=== PATIENT | male | born 1960 | race Caucasian/White ===

== ENCOUNTER 2017-06-30 19:31 | Emergency (ER) | payer MEDICARE, MEDICAID ==
[2017-06-30 20:18] VITALS: BP 133/88
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
== END 2017-06-30 20:30 | disposition home or self-care (01) ==
LOC: UCCORT 19:31
DX: S40.012A Contusion of left shoulder, initial encounter (principal); Y08.89XA Assault by other specified means, initial encounter; Y93.9 Activity, unspecified; Y92.9 Unspecified place or not applicable; F79 Unspecified intellectual disabilities; Z88.8 Allergy status to other drugs, medicaments and biological substances
CPT/HCPCS: 99211; G0463

== ENCOUNTER 2018-02-20 09:09 | Emergency (ER) | payer MEDICARE, MEDICAID ==
--- NOTE | 2018-02-20 10:35 | UC ---
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 no LOC or head injury. - History of Current Complaint Chief Complaint: UCLowerExtremity Stated Complaint: L HIP CONCERN - FALL Time Seen by Provider: 02/20/18 10:27 Hx Obtained From: Family/Freezer Operator Onset/Duration: Sudden Onset Pain Intensity: 0 - Allergy/Home Medications Allergies/Adverse Reactions: Allergies Allergy/AdvReac Type Severity Reaction Status Date / Time Rentin A Allergy Unknown Uncoded 06/30/17 20:18 Reaction Details PMH/Surg Hx/FS Hx/Imm Hx - Additional Past Medical History Additional PMH: MR, SZ, autism, Hep B carrier, PICA, hypoglycemia - Surgical History Surgical History: Yes Surgery Procedure, Year, and Place: LAPAROTOMY FOR FOREIGN BODY REMOVAL. SURGICAL TOOTH REMOVAL - Family History Known Family History: Positive: Unknown - not verbal with me - Social History Occupation: Disabled Lives: [employer] Alcohol Use: None Substance Use Type: None Smoking Status (MU): Never Smoked Tobacco - Immunization History Vaccination Up to Date: Yes Review of Systems All Other Systems Reviewed And Are Negative: No Skin: Negative: Bruising Musculoskeletal: Negative: Decreased ROM Is Patient Immunocompromised?: No - Comments Additional Review of Systems Comments: pt has MR and is non verbal Physical Exam Triage Information Reviewed: Yes Appearance: Well-Appearing Vital Signs: Initial Vital Signs Temp 97.9 F 02/20/18 09:56 Pulse 78 02/20/18 09:56 Resp 18 02/20/18 09:56 Pulse Ox 99 02/20/18 09:56 Vital Signs Reviewed: Yes Eyes: Positive: Conjunctiva Clear ENT: Positive: Normal ENT inspection Neck: Positive: Supple, Nontender, No Lymphadenopathy, Other: - c-spine non tender Respiratory: Positive: Chest non-tender, Lungs clear, Normal breath sounds Cardiovascular: Positive: RRR, No Murmur Abdomen Description: Positive: Nontender, No Organomegaly, Soft Bowel Sounds: Positive: Present Musculoskeletal: Positive: Other: - Head, back, pelvis and extremities has no brusing, swelling abrasions or tenderness. Gross v/m intact x4. Steadty gait. Neurological: Positive: Alert Psychological: Positive: Age Appropriate Behavior - baseline per wound care specialist. Skin Exam: Normal Course/Dx - Course Course Of Treatment: nothing on exam to suggest fx/injury - Diagnoses Provider Diagnosis: Normal exam Discharge - Sign-Out/Discharge Documenting (check all that apply): Patient Departure All imaging exams completed and their final reports reviewed: No Studies - Discharge Plan Condition: Stable Disposition: HOME Patient Education Materials: Normal Exam (ED) Referrals: Tamera Escoto MD [Primary Care Provider] - If Needed - Billing Disposition and Condition Condition: STABLE Disposition: Home - Attestation Statements Provider Attestation: I was available for consult. This patient was seen by the JAIME. The patient was not presented to, seen by, or examined by me. EK
== END 2018-02-20 10:41 | disposition home or self-care (01) ==
LOC: UCCORT 09:09
DX: Z03.89 Encounter for observation for other suspected diseases and conditions ruled out (principal); Z88.8 Allergy status to other drugs, medicaments and biological substances; F79 Unspecified intellectual disabilities; F84.0 Autistic disorder; F50.89 Other specified eating disorder
CPT/HCPCS: 99211; G0463

== ENCOUNTER 2018-04-23 16:12 | Emergency (ER) | payer MEDICARE, MEDICAID ==
--- OUTSIDE RECORDS SUMMARY | 2018-04-23 17:09 | XMS REPORT ---
:1960 Author Care Team Providers Name Role Phone Unavailable Unavailable Unavailable Problems Condition Condition Condition Status Onset Resolution Last Treating Comments Name Details Category Date Date Treatment Clinician Date Autistic Active 1995-02-19 Disorder 00:00:00 Intellectual Active 2017-09-16 Disability 00:00:00 Allergies, Adverse Reactions, Alerts Allergy Name Allergy Status Severity Reaction(s) Onset Inactive Treating Comments Type Date Date Clinician Retin A Gel Drug Active Skin 1968-02 Allergy Sensitivity 19:00: 00 Seasonal Drug Active Mild unknown 1968-02 Allergies Allergy 19:00: 00 [place] Drug Active Mild to Skin may be 1968-02 Allergy moderate sensitive 19:00: 00 MEDICATION Drug Active unknown 1968-02 ALLERGIES: Allergy Retin A-gel 19:00: FOOD 00 ALLERGIES: None known OTHER (latex, environmenta l, etc.): Skin may be sensitive to cologne, spray on clothes Social History Smoking Status Start Date Stop Date Never smoker Social History Observation Description Sex Male Medications Ordered Filled Start Stop Current Ordering Indication Dosage Frequency Signature Comments Components Medication Medication Date Date Medication? Clinician (SIG) Name Name Sher Olivarez 2016- 2018- No 17oz 2/Day Powder Powder 04-04 00:00: 00:00 00 :00 Ducusate Ducusate 2016-0 Yes 100mg 2/Day 04-04 00:00: 00 Folic Acid Folic Acid 2016-0 Yes 1mg 1/Day - 00:00: 00 Loratadine Loratadine 2016-0 Yes 10mg 1/Day - 00:00: 00 Multi Vit W Multi Vit W 2016-0 Yes 1tab 1/Day Mineral Mineral -17 tablet tablet 00:00: 00 Serzone Serzone 2016-0 Yes 200mg 2/Day -17 tab 00:00: 00 Risperidal Risperidal 2016-0 Yes 4mg 2/Day - 00:00: 00 Phentoin Phentoin 2016-0 Yes 100mg 1/Day -17 cap 00:00: 00 phenytoin phenytoin 2016-0 Yes 100mg 1/Night 17 cap 00:00: 00 Buspirone Buspirone 2016-0 Yes 30mg 2/Day -17 tab 00:00: 00 Immunizations Ordered Immunization Filled Immunization Date Status Comments Refusal Reason Name Name Influenza seasonal 2016-11-25 Completed 00:00:00 Influenza seasonal 2016-01-01 Completed 00:00:00 TST-PPD intradermal 2009-03-29 Completed 00:00:00 TST-PPD intradermal 2008-03-21 Completed 00:00:00 Tetanus 2007-05-05 Completed 00:00:00 Other 1989-02-16 Completed 00:00:00 Vital Signs Vital Name Observation Time Observation Value Comments Body Height 2016-04-04 00:00:00 69.0 cm Body Weight 2016-04-04 00:00:00 167.0 kg BP Systolic 2016-04-04 00:00:00 111 mm[Hg] BP Diastolic 2016-04-04 00:00:00 70 mm[Hg] Body Temperature 2016-04-04 00:00:00 98 Radha Heart Rate 2016-04-04 00:00:00 76 /min Respiratory Rate 2016-04-04 00:00:00 18 /min Body Weight 2017-09-16 00:00:00 167.0 kg BP Systolic 2017-09-16 00:00:00 111 mm[Hg] BP Diastolic 2017-09-16 00:00:00 70 mm[Hg] Body Temperature 2017-09-16 00:00:00 98 Radha Heart Rate 2017-09-16 00:00:00 76 /min Respiratory Rate 2017-09-16 00:00:00 18 /min Procedures This patient has no known procedures. Reason for Referral This patient has no known reason for referral. Chief Complaint and Reason for Visit This patient event has no chief complaint or reason for visit specified. Results This patient has no known results. Assessments This patient has no known assessments.
--- OUTSIDE RECORDS SUMMARY | 2018-04-23 17:09 | XMS REPORT | Continuity of Care Document ---
:1960 External Reference #:[id number] Author Name Tamera Escoto MD Address [address] [place] [address] Care Team Providers Name Role Phone Tamera Escoto MD Care Team Information Program Project Analyst Unavailable Payers Date Identification Numbers Payment Provider Subscriber Effective: 1998 Policy Number: [id number] Medicare Cirilo Stanley Sameer Group Name: [facility] [address] PayID: [id number] [place] [address] Policy Number: [id number] Medicaid ### >11 Cirilo Angel Sameer PayID: [id number] [address] [place] [address] Onset: 2016 Policy Number: [id number] [employer] Cirilo Stanley Sameer Group Number: [id number] PayID: [place] [address] Advance Directives Description No Information Available Problems Date Description Provider Status Onset: 03/26/2012 Constipation Emeka Bocanegra DO Active Onset: 03/15/2007 Epilepsy Emeka Bocanegra DO Active Onset: 03/15/2007 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 Onset: 03/15/2007 Mental retardation Emeka Bocanegra DO Active Onset: 03/15/2007 Sensorineural hearing loss Emeka Bocanegra DO Active Onset: 04/08/2018 Acne Tamera Escoto MD Active Onset: 04/04/2016 Vitamin B-complex deficiency Emeka Bocanegra DO Active Onset: 03/30/2014 Allergic rhinitis Emeka Bocanegra DO Active Onset: 03/12/2012 Periodontal disease Active Family History Description No Information Available Social History Type Date Description Comments Sex Unknown Marital Status Single Lives With Lives in retirement Occupation Disabled Tobacco Use Start: Unknown Patient has never smoked Smoking Status Reviewed: 04/08/18 Patient has never smoked Allergies, Adverse Reactions, Alerts Date Description Reaction Status Severity Comments 04/04/2016 Retin-A Active Skin Irritation 03/14/2014 NKDA Inactive Medications Medication Date Status Form Strength Qnty SIG Indications Ordering Provider Phenytoin 04/08/ Active Capsules 100mg 90caps 3 by mouth Cunningha Sodium 2018 every Evening Tamera castañeda Extended MD Propranolol 04/08/ Active Caps ER 80mg 30caps 1 by mouth Cunningha HCL ER 2019 24HR every day Tamera castañeda MD Stool 04/02/ Active Capsules 100mg 60caps Take 1 K59.00 Cunspeedyha Softener 2019 Capsule By Tamera castañeda Mouth Two MD Times A Day With Fruit Juice With Morningmeds Risperidone 10/12/ Active Tablets 2mg 1 po daily F84.0 Aron, 2018 Claudio F78 Total Fiber 08/03/2017 Active Powder 500units 1 teaspoons in K59.00 Jevon, 8 oz of fluid MD Tamera twice daily Milk Of 12/18/2016 Active Suspension 4 473ml give 30ml by K59.00 Jevon Magnesia 0 mouth prn MD Tamera 0 constipation on m Day 3 of no BM, g and can be / given again on 5 day 4 if no BM M L UT-Acid 06/26/2016 Active Suspension 2 355ml 1 Tablespoonful Daljit, 0 By Mouth Every DO Emeka 0 4 Hours as - Needed For 2 Complaint Of 0 Stomach Upset 0 *Max Daily - Dose: 6 2 Tablespoonfuls 0 m g / 5 M L Vitamins/Min 11/08/2015 Active Tablets 30tabs take 1 tablet xochitl Escoto by mouth daily MD Tamera Phenytoin Active Capsules 1 2 In Am 300MG G40.909 Unknown Sodium 0 PM Extended 0 m g Nefazodone Active Tablets 2 90tabs take 1 by F84.0 Aron, Claudio HCL 0 mouth two times 0 a day m g F78 Buspirone HCL Active Tablets 30mg 180tabs 1 by mouth F78 Slaven, Claudio twice a day F84.0 [facility] Ear Wax Active Kit 6.5% 5 drops 2 (two) Unknown Cleansing System times daily. Ibuprofen Active Tablets 400mg Take 400 mg by Unknown mouth every 4 hours as needed. Bismuth Active Suspension 262mg/ 2 Tablespppon Unknown Subsalicylate 15ML PO prn For Each Loose Bowel Movement MDD 12 Tablespoonful Antacid Plus Active Suspension Take by mouth Unknown every 4 hours as needed. Pseudoephedrine Active Liquid 30mg/5 Take 30 mg by Unknown HCL ML mouth 4 (four) times daily as needed. Hydrocortisone Active Cream 1% Apply Unknown Plus topically 3 times daily. Loratadine Active Tablets 10mg 90 take 1 tablet J3 Cunningha ta by mouth daily 0. m, Tamera bs 9 Folic Acid Active Tablets 1mg 30 take 1 tablet E5 Cunningha ta by mouth daily 3. m, artem Philip 8 Tylenol Active Tablets 325mg 2 tabs 4 times Unknown daily as needed Benztropine Active Tablets 0.5mg 1 by mouth bid F8 Slaven, Mesylate 4. Claudio 0 Tussin DM Active Liquid 2 Teaspoon PO Q Unknown 6 Hours prn Cough Baby Oil Active Oil 1B 3 Drops Each H6 Cunningha ot Ear AT hs 1. m, Tamera, tl 20 e Clearasil Active Cream Apply bid L7 Unknown 0. 9 Triple Antibiotic Active Ointment 1% tid prn Unknown Plus Benefiber 05/12/2017 - Hx Powder 50 1 teaspoons in K5 Digiovann 08/03/2017 0u 8 oz of fluid 9. a, ni twice daily 00 alessandra Long MD SM Nasal 06/16/2016 - Hx Tablets 30mg 24 Take 1 Tablet Daljit, Decongestant 04/05/2017 ta By Mouth Every Emeka, Maximum Strength bs 4 Hours as DO Needed For Complaint Of Nasaldrainage *Max Daily Dose: 6 Tablets Diazepam 03/06/2016 - Hx Tablets 5mg 3t 3 by mouth 1 Gonzalez, 04/05/2017 ab hour prior to sebas Avila dental DO procedure. Diazepam 08/22/2015 - Hx Tablets 5mg 3t 3 by mouth 1 Daljit, 03/06/2016 ab hour prior to sebas Hendrickson dental DO procedure. Q-Pap 07/23/2015 - Hx Tablets 325mg 10 Take 2 Tablets Daljit, 04/05/2017 0t (650MG) By Emeka, ab Mouth Every 4 DO s Hours as Needed For Pain Or Fever >100 Or Headache *Max Daily Dose: 12 Tablets Benefiber 05/29/2015 - Hx Powder 50 mix 1 K5 Digiovann 05/12/2017 17.6Oz. 0u tablespoonful 9. a, ni in 8 oz fluid & 00 Ethan, ts drink by mouth MD 2 times a day Tamiflu 05/25/2014 - Hx Capsules 75mg 10 1 by mouth Daljit, 02/12/2015 ca twice a day everton Hendrickson DO Docusate Sodium 03/09/2013 - Hx Capsules 100mg 60 Take 1 Capsule Daljit, 04/03/2016 ca By Mouth Two everton Hendrickson Times A Day DO Diazepam 01/10/2013 - Hx Tablets 5mg 3t 3 by mouth 1 Daljit, 04/02/2015 ab hour prior to sebas Hendrickson dental DO procedure. Loratadine 11/05/2010 - Hx Tablets 10mg 30 1 po qd Daljit, 03/14/2014 ta artem Hendrickson DO Carbamoxide Ear 01/18/2008 - Hx Solution 6.5% 10 Ten drops in Daljit, Drops 04/02/2015 ml each ear in one kim Hendrickson then DO monthly. Risperidone - Hx Tablets 4mg 1 po bid F8 Unknown 04/06/2017 4. 0 F78 Phenytoin Sodium - Hx Capsules 200mg Take 200 mg Unknown Extended 04/05/2017 by mouth Two tabs Daily. 400 mg po qam Buspirone HCL - Hx Tablets 15mg Take 15 mg Unknown 04/02/2015 by mouth Two Times Daily. Acetaminophen ER - Hx Tablets ER 650mg Take 650 mg Unknown 04/04/2016 by mouth every 8 (eight) hours as needed. Milk Of Magnesia - Hx Suspension 1200mg/15 take by Daljit, 12/18/2016 ML mouth every Emeka, 3rd or 4th DO day as needed for constipatio n. Colace - Hx Capsules 100mg 1 by mouth Unknown 04/06/2017 twice a day Multivitamin Adult - Hx Tablets 90ta 1 by mouth Jevon , 07/02/2017 bs every day MD Tamera Risperidone - Hx Tablets 3mg 1 by mouth F84. Slaven, 10/12/2017 every 0 Claudio Morning F78 Docqlace - Hx Capsules 100mg 60caps take 1 K59. Escoto , 04/02/2018 capsule by MD Tamera mouth two times a day with fruit juice with morning meds Immunizations CPT Code Status Date Vaccine Reaction Lot # [id number] Given 11/25/2017 Influenza Virus Vaccine,Quadrivalent,Split,Pr eserv Free, 0.5mL,[place] [address] Given 11/25/2016 Afluria Or Fluvirin Flu Vac Intramuscular Q2037 Given 01/01/2016 Fluvirin Immunization Given At Pharmacy [facility]. [address] Given 11/10/2012 Afluria Or Fluvirin Flu Vac EXP. 08/15/13 Intramuscular 27072 Given 10/23/2011 Afluria Or Fluvirin Flu Vac Intramuscular 38614 Given 11/05/2010 Afluria Or Fluvirin Flu Vac Intramuscular 59021 Given 12/09/2007 Afluria Or Fluvirin Flu Vac Intramuscular 94818 Given 05/05/2007 Tdap (Adacel) Ages 7 And Above Only 11133 Given 05/05/2007 Tdap (Adacel) Ages 7 And Above Only 91192 Given 12/16/2006 Afluria Or Fluvirin Flu Vac Intramuscular 35021 Given 01/06/2006 Afluria Or Fluvirin Flu Vac Intramuscular 84306 Given 01/02/2005 Afluria Or Fluvirin Flu Vac Intramuscular 29357 Given 01/02/2005 Afluria Or Fluvirin Flu Vac Intramuscular 81168 Given 12/27/2002 Afluria Or Fluvirin Flu Vac Intramuscular Vital Signs Date Vital Result Comment 04/08/2018 8:36am Weight 166.00 lb Heart Rate 90 /min BP Systolic 134 mmHg BP Diastolic 70 mmHg Respiratory Rate 18 /min Height 68.5 inches 5'8.50" BMI (Body Mass Index) 24.9 kg/m2 09/14/2017 2:58pm Body Temperature 98.5 F Weight 165.00 lb Heart Rate 91 /min BP Systolic 124 mmHg BP Diastolic 74 mmHg Respiratory Rate 18 /min Height 68.5 inches 5'8.50" O2 % BldC Oximetry 96 % ra BMI (Body Mass Index) 24.7 kg/m2 07/22/2017 1:01pm Body Temperature 97.6 F Weight 170.00 lb Heart Rate 77 /min BP Systolic 112 mmHg BP Diastolic 70 mmHg BP Systolic Sitting 112 mmHg BP Diastolic Sitting 70 mmHg BP Systolic Standing 110 mmHg BP Diastolic Standing 70 mmHg Respiratory Rate 18 /min Height 68.5 inches 5'8.50" O2 % BldC Oximetry 97 % Ra BMI (Body Mass Index) 25.5 kg/m2 04/06/2017 9:38am Body Temperature 97.4 F Weight 162.00 lb Heart Rate 74 /min BP Systolic 114 mmHg BP Diastolic 70 mmHg Respiratory Rate 18 /min Height 68.5 inches 5'8.50" O2 % BldC Oximetry 97 % Ra BMI (Body Mass Index) 24.3 kg/m2 03/04/2017 4:36pm Body Temperature 98.2 F Weight 173.00 lb Heart Rate 77 /min BP Systolic 124 mmHg BP Diastolic 78 mmHg Respiratory Rate 16 /min Height 69 inches 5'9" (04/04/16) O2 % BldC Oximetry 97 % BMI (Body Mass Index) 25.5 kg/m2 06/06/2016 10:58am Body Temperature 98.2 F Weight 165.31 lb Heart Rate 80 /min BP Systolic 114 mmHg BP Diastolic 74 mmHg Respiratory Rate 18 /min Height 69 inches 5'9" (04/04/16) O2 % BldC Oximetry 98 % On room air BMI (Body Mass Index) 24.4 kg/m2 04/04/2016 10:37am Body Temperature 98.2 F Weight 167.00 lb Heart Rate 72 /min BP Systolic 110 mmHg BP Diastolic 62 mmHg Respiratory Rate 24 /min Height 69 inches 5'9" (04/04/16) BMI (Body Mass Index) 24.7 kg/m2 02/05/2016 4:12pm Weight 175.00 lb With Shoes, With Jacket Heart Rate 78 /min BP Systolic 110 mmHg BP Diastolic 70 mmHg Respiratory Rate 18 /min 11/07/2015 9:55am Weight 165.00 lb Heart Rate 66 /min BP Systolic 110 mmHg BP Diastolic 60 mmHg Respiratory Rate 18 /min Height 68.5 inches 5'8.50" (11/06/18) BMI (Body Mass Index) 24.7 kg/m2 04/02/2015 10:23am Weight 165.06 lb Heart Rate 66 /min BP Systolic 110 mmHg BP Diastolic 70 mmHg Respiratory Rate 24 /min Height 68 inches 5'8" BMI (Body Mass Index) 25.1 kg/m2 03/22/2015 3:51pm Weight 163.19 lb Heart Rate 78 /min BP Systolic 124 mmHg BP Diastolic 72 mmHg Respiratory Rate 18 /min 02/21/2015 7:40am Weight 176.31 lb Height 68.50 inches 5'8.50" BMI (Body Mass Index) 26.42 kg/m2 02/21/2015 11:37am Body Temperature 97.7 F 02/21/2015 12:25pm Heart Rate 85 /min BP Systolic 112 mmHg BP Diastolic 72 mmHg Respiratory Rate 16 /min O2 % BldC Oximetry 95 % 02/12/2015 9:00am Body Temperature 97.9 F Weight 169.00 lb Heart Rate 90 /min BP Systolic 122 mmHg BP Diastolic 70 mmHg Respiratory Rate 22 /min Height 68.5 inches 5'8.50" O2 % BldC Oximetry 96 % Ra BMI (Body Mass Index) 25.3 kg/m2 03/30/2014 10:27am Weight 174.00 lb Heart Rate 72 /min BP Systolic 112 mmHg BP Diastolic 70 mmHg Respiratory Rate 24 /min Height 68.5 inches 5'8.50" BMI (Body Mass Index) 26.1 kg/m2 03/14/2014 11:06am Body Temperature 99.0 F Weight 172.00 lb Heart Rate 92 /min BP Systolic 108 mmHg BP Diastolic 58 mmHg Respiratory Rate 20 /min Height 68 inches 5'8" O2 % BldC Oximetry 9394 % BMI (Body Mass Index) 26.1 kg/m2 03/28/2013 10:40am Weight 165.00 lb Heart Rate 66 /min BP Systolic 100 mmHg BP Diastolic 62 mmHg Respiratory Rate 18 /min 01/10/2013 11:50am Weight 158.00 lb Heart Rate 78 /min BP Systolic 118 mmHg BP Diastolic 70 mmHg Respiratory Rate 18 /min 07/05/2012 2:47pm Weight 165.00 lb Heart Rate 78 /min BP Systolic 110 mmHg BP Diastolic 70 mmHg Respiratory Rate 24 /min 03/26/2012 8:51am Weight 163.00 lb Heart Rate 72 /min BP Systolic 118 mmHg BP Diastolic 70 mmHg Respiratory Rate 18 /min 02/06/2012 9:04am Weight 168.00 lb BP Systolic 112 mmHg BP Diastolic 62 mmHg 03/24/2011 10:33am Weight 176.00 lb Heart Rate 78 /min BP Systolic 112 mmHg BP Diastolic 80 mmHg Respiratory Rate 18 /min Height 69.5 inches 5'9.50" 11/05/2010 2:46pm Weight 190.00 lb Heart Rate 72 /min BP Systolic 122 mmHg BP Diastolic 72 mmHg Respiratory Rate 18 /min Height 69.5 inches 5'9.50" 06/07/2010 1:36pm Body Temperature 99.0 F Weight 180.00 lb Heart Rate 66 /min BP Systolic 110 mmHg BP Diastolic 60 mmHg Respiratory Rate 18 /min Height 69.5 inches 5'9.50" O2 % BldC Oximetry 94 % 03/21/2010 9:15am Weight 174.00 lb Heart Rate 72 /min BP Systolic 130 mmHg BP Diastolic 70 mmHg Respiratory Rate 18 /min 02/14/2010 1:01pm Weight 167.00 lb 07/04/2009 1:30pm Weight 156.00 lb Heart Rate 78 /min BP Systolic 124 mmHg BP Diastolic 88 mmHg Respiratory Rate 18 /min 06/18/2009 9:26am Weight 157.00 lb Heart Rate 78 /min BP Systolic 120 mmHg BP Diastolic 66 mmHg Respiratory Rate 18 /min 03/19/2009 9:15am Weight 154.00 lb Heart Rate 78 /min BP Systolic 92 mmHg BP Diastolic 60 mmHg Respiratory Rate 24 /min 01/09/2009 11:34am Body Temperature 98.2 F Weight 156.00 lb Heart Rate 92 /min BP Systolic 114 mmHg RIGHT BP Diastolic 68 mmHg RIGHT Respiratory Rate 16 /min 03/16/2008 9:01am Weight 175.00 lb Heart Rate 84 /min BP Systolic 118 mmHg BP Diastolic 80 mmHg Respiratory Rate 30 /min 01/18/2008 10:00am Body Temperature 97.9 F Weight 174.00 lb Heart Rate 78 /min BP Systolic 126 mmHg BP Diastolic 76 mmHg Respiratory Rate 22 /min Height 69 inches 5'9" 12/20/2007 1:54pm Body Temperature 97.8 F Weight 172.00 lb Heart Rate 74 /min BP Systolic 130 mmHg BP Diastolic 88 mmHg Respiratory Rate 24 /min Height 69 inches 5'9" 03/15/2007 9:10am Weight 159.00 lb Heart Rate 72 /min BP Systolic 112 mmHg BP Diastolic 66 mmHg Respiratory Rate 16 /min Height 69 inches 5'9" 03/09/2006 10:35am Weight 158.00 lb Heart Rate 78 /min BP Systolic 112 mmHg BP Diastolic 78 mmHg Respiratory Rate 18 /min Height 69 inches 5'9" 12/16/2005 11:20am Weight 167.00 lb Heart Rate 78 /min BP Systolic 126 mmHg BP Diastolic 76 mmHg Respiratory Rate 18 /min Height 69 inches 5'9" 03/07/2005 10:36am Weight 166.00 lb Heart Rate 78 /min Reg BP Systolic 90 mmHg LEFT BP Diastolic 70 mmHg LEFT Respiratory Rate 18 /min Height 69 inches 5'9" 06/26/2004 2:44pm Body Temperature 98.2 F Weight 162.00 lb Heart Rate 80 /min BP Systolic 104 mmHg BP Diastolic 72 mmHg Respiratory Rate 16 /min Results Test Date Facility Test Result H/L Range Note Laboratory test 03/30/2018 [facility] Phenytoin 11.4 ug/ mL N 10.0-20.0 1 finding (315)- - (Dilantin) Ua RFX Micro & 03/30/2018 [facility] Urine Color YELLOW Yellow Culture II (315)- - Urine Clarity CLEAR Clear Urine Glucose - Dipstick NEGATIVE mg/dL Negative Urine Bilirubin - Dipstick NEGATIVE Negative Urine Ketone NEGATIVE mg/dL Negative Urine Specific Seale 1.015 N 1.010-1.030 Urine Blood NEGATIVE Negative Urine PH 7.5 N 6.5-7.5 Urine Protein - Dipstick 30 mg/dL High Negative Urine Urobilinogen - Dipstick 0.2 E.U./dL N 0.2-1.0 Urine Nitrite - Dipstick NEGATIVE Negative Urine Leuk Esterase NEGATIVE Negative Source: URINE, CLEAN CAT <SEE NOTE> 2 CBS W/Automated Diff 03/30/2018 [facility] White Blood 5.1 K/uL N 3.4-10.5 (315)- - Count Red Blood Count 4.42 M/uL N 4.20-5.80 Hemoglobin 14.1 gm/dL N 12.8-17.0 Hematocrit 41.0 % N 38.0-48.0 Mean Cell Volume 92.8 fl N 80.0-96.0 Mean Corpuscular HGB 31.9 pg N 27.0-33.0 Mean Corpuscular HGB Conc 34.4 g/dL N 31.7-36.0 Platelet Count 236 K/uL N 155-360 Red Cell Distri Width SD 38.5 fl N 36-51 Red Cell Distri Width %CV 11.5 % Low 11.6-15.8 Mean Platelet Volume 8.6 fL N 6.6-10.6 Neut% 58.5 % N 33.0-73.0 Lymph % 28.4 % N 20.0-42.0 [place] % 9.6 % N 0.0-10.0 Eo% 3.3 % N 0.0-6.6 Bas% 0.2 % N 0.0-1.1 Neut# 2.98 K/uL N 1.8-7.0 Lymph # 1.45 K/uL N 1.0-4.0 [place] # 0.49 K/uL N 0.0-0.8 Eos # 0.17 K/uL N 0.0-0.5 Baso # 0.01 K/uL N 0.0-0.1 Comprehensive Metabolic 03/30/2018 [facility] Glucose 128 mg/dL High 74-106 Panel (315)- - BUN 15 mg/dL N 7-18 Creatinine 0.8 mg/dL N 0.6-1.3 Glom Filtration Rate, Estimate >60 mL/min >60 If >60 mL/min >60 3 BUN/Creat 18.7 ratio Sodium 129 mmol/L Low 136-145 Potassium 4.1 mmol/L N 3.5-5.1 Chloride 96 mmol/L Low 98-107 Carbon Dioxide 26 mmol/L N 21-32 Anion Gap 7 mEq/L Low 8-16 Calcium 8.3 mg/dL Low 8.5-10.1 Total Protein 7.2 g/dL N 6.4-8.2 Albumin 3.3 g/dL Low 3.4-5.0 Globulin 3.9 g/dL N 1.9-4.3 Alb/Glob 0.8 ratio Bilirubin,Total 0.4 mg/dL N 0.2-1.0 Sgot/Ast 21 U/L N 15-37 SGPT/Alt 18 U/L N 12-78 Alkaline Phosphatase 93 U/L N 45-117 Laboratory test 03/30/2018 [facility] Troponin-I < 0.015 4 finding (315)- - ng/mL CBS W/Automated 09/10/2017 [facility] White Blood Count 3.7 K/uL N 3.4-10. 5 Diff (315)- - 5 Red Blood Count 4.55 M/uL N 4.20-5.80 Hemoglobin 14.7 gm/dL N 12.8-17.0 Hematocrit 42.1 % N 38.0-48.0 Mean Cell Volume 92.5 fl N 80.0-96.0 Mean Corpuscular HGB 32.3 pg N 27.0-33.0 Mean Corpuscular HGB Conc 34.9 g/dL N 31.7-36.0 Platelet Count 219 K/uL N 155-360 Red Cell Distri Width SD 38.2 fl N 36-51 Red Cell Distri Width %CV 11.4 % Low 11.6-15.8 Mean Platelet Volume 8.9 fL N 6.6-10.6 Neut% 63.9 % N 33.0-73.0 Lymph % 25.1 % N 20.0-42.0 [place] % 10.2 % High 0.0-10.0 Eo% 0.5 % N 0.0-6.6 Bas% 0.3 % N 0.0-1.1 Neut# 2.39 K/uL N 1.8-7.0 Lymph # 0.94 K/uL Low 1.0-4.0 [place] # 0.38 K/uL N 0.0-0.8 Eos # 0.02 K/uL N 0.0-0.5 Baso # 0.01 K/uL N 0.0-0.1 Ua RFX Micro & 09/10/2017 [facility] Urine Color YELLOW Yellow Culture II (315)- - Urine Clarity CLEAR Clear Urine Glucose - Dipstick NEGATIVE mg/dL Negative Urine Bilirubin - Dipstick NEGATIVE Negative Urine Ketone NEGATIVE mg/dL Negative Urine Specific Seale 1.015 N 1.010-1.030 Urine Blood NEGATIVE Negative Urine PH 7.0 N 6.5-7.5 Urine Protein - Dipstick TRACE mg/dL Negative Urine Urobilinogen - Dipstick 0.2 E.U./dL N 0.2-1.0 Urine Nitrite - Dipstick NEGATIVE Negative Urine Leuk Esterase NEGATIVE Negative Source: URINE, CLEAN CAT <SEE NOTE> 6 Comprehensive Metabolic 09/10/2017 [facility] Glucose 130 mg/dL High 74-106 Panel (315)- - BUN 12 mg/dL N 7-18 Creatinine 0.7 mg/dL N 0.6-1.3 Glom Filtration Rate, Estimate >60 mL/min >60 If >60 mL/min >60 7 BUN/Creat 17.1 ratio Sodium 135 mmol/L Low 136-145 Potassium 3.9 mmol/L N 3.5-5.1 Chloride 101 mmol/L N 98-107 Carbon Dioxide 25 mmol/L N 21-32 Anion Gap 9 mEq/L N 8-16 Calcium 8.9 mg/dL N 8.5-10.1 Total Protein 7.3 g/dL N 6.4-8.2 Albumin 3.7 g/dL N 3.4-5.0 Globulin 3.6 g/dL N 1.9-4.3 Alb/Glob 1.0 ratio Bilirubin,Total 0.4 mg/dL N 0.2-1.0 Sgot/Ast 13 U/L Low 15-37 8 SGPT/Alt 14 U/L N 12-78 Alkaline Phosphatase 71 U/L N 45-117 Laboratory test 09/10/2017 [facility] Magnesium 2.0 mg/ dL N 1.8-2.4 finding (315)- - Troponin-I < 0.015 ng/mL 9 Phenytoin (Dilantin) 14.6 ug/mL N 10.0-20.0 Comprehensive Met 08/22/2017 [facility] Glucose 96 mg/dL N 74-106 10 Panel-FCMG (315)- - BUN 10 mg/dL N 7-18 Creatinine 0.6 mg/dL N 0.6-1.3 Glom Filtration Rate, Estimate >60 mL/min >60 If >60 mL/min >60 11 BUN/Creat 16.6 ratio Sodium 135 mmol/L Low 136-145 Potassium 4.1 mmol/L N 3.5-5.1 Chloride 99 mmol/L N 98-107 Carbon Dioxide 29 mmol/L N 21-32 Anion Gap 7 mEq/L Low 8-16 Calcium 8.8 mg/dL N 8.5-10.1 Total Protein 7.9 g/dL N 6.4-8.2 Albumin 4.1 g/dL N 3.4-5.0 Globulin 3.8 g/dL N 1.9-4.3 Alb/Glob 1.1 ratio Bilirubin,Total 0.4 mg/dL N 0.2-1.0 Sgot/Ast 15 U/L N 15-37 SGPT/Alt 17 U/L N 12-78 Alkaline Phosphatase 81 U/L N 45-117 Laboratory test 08/22/2017 [facility] Phenytoin 10.1 ug/ mL N 10.0-20.0 finding (315)- - (Dilantin) CBC with Auto 08/22/2017 [facility] White Blood 4.6 K/uL N 3.4-10.5 Diff-fcmg (315)- - Count Red Blood Count 4.81 M/uL N 4.20-5.80 Hemoglobin 15.3 gm/dL N 12.8-17.0 Hematocrit 44.6 % N 38.0-48.0 Mean Cell Volume 92.7 fl N 80.0-96.0 Mean Corpuscular HGB 31.8 pg N 27.0-33.0 Mean Corpuscular HGB Conc 34.3 g/dL N 31.7-36.0 Platelet Count 257 K/uL N 155-360 Red Cell Distri Width SD 39.4 fl N 36-51 Red Cell Distri Width %CV 11.7 % N 11.6-15.8 Mean Platelet Volume 9.0 fL N 6.6-10.6 Neut% 63.0 % N 33.0-73.0 Lymph % 26.3 % N 20.0-42.0 [place] % 9.4 % N 0.0-10.0 Eo% 1.1 % N 0.0-6.6 Bas% 0.2 % N 0.0-1.1 Neut# 2.87 K/uL N 1.8-7.0 Lymph # 1.20 K/uL N 1.0-4.0 [place] # 0.43 K/uL N 0.0-0.8 Eos # 0.05 K/uL N 0.0-0.5 Baso # 0.01 K/uL N 0.0-0.1 Basic (BMP) 08/07/2017 [facility] Sodium 132 mmol/L Low 135-146 12, 13 Potassium 4.1 mmol/L 3.5-5.2 Chloride# 96 mmol/L Low 97-110 14 Carbon Dioxide 28 mmol/L 24-34 Glucose 158 mg/dL High 70-105 BUN 15 mg/dL 6-26 Creatinine 0.7 mg/dL 0.5-1.4 Calcium 9.6 mg/dL 8.5-10.2 Non Celeste Egfr >60 >60 15 Celeste Egfr >60 >60 16 Anion Gap 8 mmol/L 5-15 17 Laboratory test 08/07/2017 [facility] Osmolality,Serum 279 mosm/kg Low (280- 300) 18 finding Phenytoin 11.9 ug/mL (10.0-20.0) 19 CBC with Auto Diff-fcmg 07/24/2017 [facility] WBC 4.0 K/uL Low 4.1-11.0 20 RBC 4.49 M/uL Low 4.60-6.10 Hemoglobin 14.6 gm/dL 13.5-18.0 Hematocrit 41.6 % 41.0-53.0 MCV 92.6 fL 80.0-97.0 MCH 32.5 pg High 27.0-32.0 MCHC 35.1 g/dL 32.0-36.0 RDW 12.0 % 11.5-14.5 PLT Count 229 K/ul 140-400 MPV 7.3 FL 7.1-10.7 Neutrophil 67.0 % 35.0-75.0 Lymphocyte 23.1 % 16.0-52.0 Monocyte 8.2 % 2.0-10.0 Eosinophil 1.3 % 0.0-5.0 Basophil 0.4 % 0.0-4.0 Abs Neutrophils 2.7 K/uL 2.1-8.0 Abs Lymphocytes 0.9 K/uL 0.8-5.5 Abs Monocytes 0.3 K/uL 0.1-1.0 Abs Eosinophils 0.1 K/uL 0.0-0.5 Abs Basophils 0.0 K/uL 0.0-0.3 Laboratory test finding 07/24/2017 [facility] Iron, Total 160 g/dL 65- 175 Vitamin B12 928 pg/mL High 180-914 Basic (BMP) 07/24/2017 [facility] Sodium 129 mmol/L Low 135-146 21 Potassium 3.8 mmol/L 3.5-5.2 Chloride# 93 mmol/L Low 97-110 22 Carbon Dioxide 27 mmol/L 24-34 Glucose 157 mg/dL High 70-105 BUN 11 mg/dL 6-26 Creatinine 0.7 mg/dL 0.5-1.4 Calcium 9.2 mg/dL 8.5-10.2 Non Celeste Egfr >60 >60 23 Celeste Egfr >60 >60 24 Anion Gap 9 mmol/L 5-15 25 CBC with Auto Diff-fcmg 07/22/2017 [facility] WBC 5.5 K/uL 4.1-11.0 26 RBC 4.28 M/uL Low 4.60-6.10 Hemoglobin 13.8 gm/dL 13.5-18.0 Hematocrit 39.4 % Low 41.0-53.0 MCV 92.0 fL 80.0-97.0 MCH 32.3 pg High 27.0-32.0 MCHC 35.1 g/dL 32.0-36.0 RDW 11.6 % 11.5-14.5 PLT Count 230 K/ul 140-400 MPV 7.2 FL 7.1-10.7 Neutrophil 64.3 % 35.0-75.0 Lymphocyte 23.6 % 16.0-52.0 Monocyte 10.3 % High 2.0-10.0 Eosinophil 1.5 % 0.0-5.0 Basophil 0.3 % 0.0-4.0 Abs Neutrophils 3.5 K/uL 2.1-8.0 Abs Lymphocytes 1.3 K/uL 0.8-5.5 Abs Monocytes 0.6 K/uL 0.1-1.0 Abs Eosinophils 0.1 K/uL 0.0-0.5 Abs Basophils 0.0 K/uL 0.0-0.3 Comprehensive Met Panel-FCMG 07/22/2017 [facility] Sodium 132 mmol/L Low 135 -146 27 Potassium 4.6 mmol/L 3.5-5.2 Chloride# 94 mmol/L Low 97-110 28 Carbon Dioxide 31 mmol/L 24-34 Glucose 98 mg/dL 70-105 BUN 11 mg/dL 6-26 Creatinine 0.6 mg/dL 0.5-1.4 Calcium 9.5 mg/dL 8.5-10.2 Total Protein 6.8 g/dL 6.0-8.0 Albumin 4.4 g/dL 3.6-4.9 Globulin 2.4 g/dL 2.0-3.5 A/G Ratio 1.8 Ratio 1.0-2.2 Total Bilirubin 0.3 mg/dL 0.1-1.3 Alkaline Phosphatase 68 U/L 24-140 Alt 9 U/L 3-42 Ast 14 U/L 8-42 Celeste Egfr >60 >60 29 Non Celeste Egfr >60 >60 30 Anion Gap 7 mmol/L 5-15 31 Laboratory test 07/22/2017 [facility] TSH 0.71 uIU/mL 0.35-4.94 finding Laboratory test 04/20/2017 [facility] Fit Negative Negative 32 finding (medicare) Laboratory test 04/06/2017 [facility] TSH 0.91 uIU/mL 0.35-4.94 33 finding Laboratory test 04/06/2017 [facility] Phenytoin 11.0 ug/mL (10.0-20.0) 34 finding Laboratory test 03/18/2017 [facility] Hepatitis C NON REACTIVE Non Reactive 35, 36 finding Virus S/CORatio(Sa Antibody m Comprehensive Met 03/18/2017 [facility] Sodium 134 mmol/L Low 135-146 37 Panel-[facility] Potassium 4.3 mmol/L 3.5-5.2 Chloride# 99 mmol/L 97-110 38 Carbon Dioxide 26 mmol/L 24-34 Glucose 88 mg/dL 70-105 BUN 14 mg/dL 6-26 Creatinine 0.6 mg/dL 0.5-1.4 Calcium 9.0 mg/dL 8.5-10.2 Total Protein 6.6 g/dL 6.0-8.0 Albumin 4.1 g/dL 3.6-4.9 Globulin 2.5 g/dL 2.0-3.5 A/G Ratio 1.6 Ratio 1.0-2.2 Total Bilirubin 0.3 mg/dL 0.1-1.3 Alkaline Phosphatase 84 U/L 24-140 Alt 9 U/L 3-42 Ast 14 U/L 8-42 Celeste Egfr >60 >60 39 Non Celeste Egfr >60 >60 40 Anion Gap 9 mmol/L 7-16 41 Blood monocytes 03/03/2017 N2N/CCD Import Blood monocytes 0.42 0.0-0.8 automated count automated count (number/volume) (number/volume) Chloride 03/03/2017 N2N/CCD Import Chloride 104 98-107 SerPl-sCnc SerPl-sCnc Eosinophil/leuk 03/03/2017 N2N/CCD Import Eosinophil/leuk 3.5 0.0-6.6 NFr Bld Auto NFr Bld Auto Globulin Ser 03/03/2017 N2N/CCD Import Globulin Ser 3.7 1.9-4.3 Calc-mCnc Calc-mCnc Lymphocytes/leuk 03/03/2017 N2N/CCD Import Lymphocytes/leuk 32.9 20.0- 42.0 NFr Bld Auto NFr Bld Auto Monocytes/leuk NFr 03/03/2017 N2N/CCD Import Monocytes/leuk NFr 9.3 0.0- 10.0 Bld Auto Bld Auto Neutrophils # Bld 03/03/2017 N2N/CCD Import Neutrophils # Bld 2.45 1.8- 7.0 Auto Auto Neutrophils/leuk 03/03/2017 N2N/CCD Import Neutrophils/leuk 54.1 33.0- 73.0 NFr Bld Auto NFr Bld Auto Potassium 03/03/2017 N2N/CCD Import Potassium 3.6 3.5-5.1 SerPl-sCnc SerPl-sCnc RDW RBC Auto 03/03/2017 N2N/CCD Import RDW RBC Auto 38.9 36-51 RDW RBC Auto-Rto 03/03/2017 N2N/CCD Import RDW RBC Auto-Rto 11.7 11.6- 15.8 Serum carbon 03/03/2017 N2N/CCD Import Serum carbon 29 21-32 dioxide dioxide measurement measurement Serum or plasma 03/03/2017 N2N/CCD Import Serum or plasma 3.4 3.4-5.0 albumin albumin measurement measurement (mass/volume) (mass/volume) Serum or plasma 03/03/2017 N2N/CCD Import Serum or plasma 83 45-117 alkaline alkaline phosphatase phosphatase measurement ( measurement (enzymatic activity/volume) Serum or plasma 03/03/2017 N2N/CCD Import Serum or plasma 16 15-37 aspartate aspartate aminotransferase aminotransferase measure measurement (enzymatic activity/volume) Serum or plasma 03/03/2017 N2N/CCD Import Serum or plasma 8.7 8.5-10.1 calcium calcium measurement measurement (mass/volume) (mass/volume) Serum or plasma 03/03/2017 N2N/CCD Import Serum or plasma 0.7 0.6-1.3 creatinine creatinine measurement measurement (mass/volum (mass/volume) Serum or plasma 03/03/2017 N2N/CCD Import Serum or plasma 118 High 74- 106 glucose glucose measurement measurement (mass/volume) (mass/volume) Serum or plasma 03/03/2017 N2N/CCD Import Serum or plasma 2.3 1.8-2.4 magnesium magnesium measurement measurement (mass/volume (mass/volume) Serum or plasma 03/03/2017 N2N/CCD Import Serum or plasma 11.2 10.0- 20.0 phenytoin phenytoin measurement measurement (mass/volume (mass/volume) Serum or plasma 03/03/2017 N2N/CCD Import Serum or plasma 7.1 6.4-8.2 protein protein measurement measurement (mass/volume) (mass/volume) Serum or plasma 03/03/2017 N2N/CCD Import Serum or plasma 0.2 0.2-1.0 total bilirubin total bilirubin measurement (mass/ measurement (mass/volume) Serum or plasma 03/03/2017 N2N/CCD Import Serum or plasma 19 High 7-18 urea nitrogen urea nitrogen measurement measurement (mass/vo (mass/volume) Serum sodium 03/03/2017 N2N/CCD Import Serum sodium 137 136-145 measurement measurement WBC # Bld Auto 03/03/2017 N2N/CCD Import WBC # Bld Auto 4.5 3.4-10.5 Leukocyte esterase 03/03/2017 N2N/CCD Import Leukocyte esterase Negative Negative Ur Ql Strip.auto Ur Ql Strip.auto Ketones Ur 03/03/2017 N2N/CCD Import Ketones Ur Negative Negative Strip.auto-mCnc Strip.auto-mCnc Color Ur 03/03/2017 N2N/CCD Import Color Ur Yellow Yellow Ua RFX Micro & 03/03/2017 [facility] Urine Color YELLOW Yellow 42 Culture II (315)- - Urine Clarity CLEAR Clear Urine Glucose - Dipstick NEGATIVE mg/dL Negative Urine Bilirubin - Dipstick NEGATIVE Negative Urine Ketone NEGATIVE mg/dL Negative Urine Specific [place] 1.020 N 1.010-1.030 Urine Blood NEGATIVE Negative Urine PH 7.0 N 6.5-7.5 Urine Protein - Dipstick TRACE mg/dL Negative Urine Urobilinogen - Dipstick 0.2 E.U./dL N 0.2-1.0 Urine Nitrite - Dipstick NEGATIVE Negative Urine Leuk Esterase NEGATIVE Negative Source: URINE, CLEAN CAT <SEE NOTE> 43 Nitrite Ur Ql 03/03/2017 N2N/CCD Import Nitrite Ur Ql Negative Negative Strip.auto Strip.auto Prot Ur 03/03/2017 N2N/CCD Import Prot Ur Trace Negative Strip.auto-mCnc Strip.auto-mCnc Specific gravity 03/03/2017 N2N/CCD Import Specific gravity 1.020 1.010- 1.030 of Urine by of Urine by Automated test Automated test strip strip Urine appearance 03/03/2017 N2N/CCD Import Urine appearance Clear Clear determination determination Urine glucose 03/03/2017 N2N/CCD Import Urine glucose Negative Negative measurement by measurement by automated test automated test strip strip (mass/volume) Urine hemoglobin 03/03/2017 N2N/CCD Import Urine hemoglobin Negative Negative detection by detection by automated test automated test strip strip Urine total 03/03/2017 N2N/CCD Import Urine total Negative Negative bilirubin bilirubin detection by detection by automated test automated test strip Urobilinogen Ur 03/03/2017 N2N/CCD Import Urobilinogen Ur 0.2 0.2-1.0 Strip-aCnc Strip-aCnc pH Ur Strip.auto 03/03/2017 N2N/CCD Import pH Ur Strip.auto 7.0 6.5-7.5 Alt SerPl-cCnc 03/03/2017 N2N/CCD Import Alt SerPl-cCnc 17 12-78 Blood hemoglobin 03/03/2017 N2N/CCD Import Blood hemoglobin 14.4 12.8- 17.0 measurement measurement (mass/volume) (mass/volume) Blood 03/03/2017 N2N/CCD Import Blood 4.58 4.20-5.80 erythrocytes erythrocytes automated count automated count (number/volume) (number/volume) Basophils/leuk 03/03/2017 N2N/CCD Import Basophils/leuk 0.2 0.0-1.1 NFr Bld Auto NFr Bld Auto BUN/Creat SerPl 03/03/2017 N2N/CCD Import BUN/Creat SerPl 27.1 Automated 03/03/2017 N2N/CCD Import Automated 92.1 80.0-96.0 erythrocyte mean erythrocyte mean corpuscular corpuscular volume volume Automated 03/03/2017 N2N/CCD Import Automated 34.1 31.7-36.0 erythrocyte mean erythrocyte mean corpuscular corpuscular hemoglobin hemoglobin concentration measurement (mass/volume) Automated 03/03/2017 N2N/CCD Import Automated 31.4 27.0-33.0 erythrocyte mean erythrocyte mean corpuscular corpuscular hemoglobin hemoglobin (mass per erythrocyte) Automated blood 03/03/2017 N2N/CCD Import Automated blood 9.1 6.6-10.6 platelet mean platelet mean volume volume measurement measurement Automated blood 03/03/2017 N2N/CCD Import Automated blood 222 155-360 platelet count platelet count Automated blood 03/03/2017 N2N/CCD Import Automated blood 1.49 1.0-4.0 lymphocyte count lymphocyte count (number/volume) (number/volume) Automated blood 03/03/2017 N2N/CCD Import Automated blood 42.2 38.0- 48.0 hematocrit hematocrit (volume fraction) (volume fraction) Automated blood 03/03/2017 N2N/CCD Import Automated blood 0.16 0.0-0.5 eosinophil count eosinophil count Automated blood 03/03/2017 N2N/CCD Import Automated blood 0.01 0.0-0.1 basophil count basophil count (count/volume) (count/volume) Anion Gap 03/03/2017 N2N/CCD Import Anion Gap 4 Low 8-16 SerPl-sCnc SerPl-sCnc Albumin/Glob 03/03/2017 N2N/CCD Import Albumin/Glob 0.9 SerPl SerPl Laboratory test 04/04/2016 [facility] Vitamin B12 1006 pg/mL High 180-914 44 finding CBC With Auto 04/04/2016 [facility] WBC 4.5 K/uL 4.1-11.0 Diff RBC 4.64 M/uL 4.60-6.10 Hemoglobin 14.6 gm/dL 13.5-18.0 Hematocrit 42.4 % 41.0-53.0 MCV 91.4 fL 80.0-97.0 MCH 31.4 pg 27.0-32.0 MCHC 34.4 g/dL 32.0-36.0 RDW 11.8 % 11.5-14.5 PLT Count 219 K/ul 140-400 Neutrophil 63.0 % 35.0-75.0 Lymphocyte 25.2 % 16.0-52.0 Monocyte 10.0 % 2.0-10.0 Eosinophil 0.9 % 0.0-5.0 Basophil 0.9 % 0.0-4.0 Abs Neutrophils 2.8 K/uL 2.1-8.0 Abs Lymphocytes 1.1 K/uL 0.8-5.5 Abs Monocytes 0.5 K/uL 0.1-1.0 Abs Eosinophils 0.0 K/uL 0.0-0.5 Abs Basophils 0.0 K/uL 0.0-0.3 Comprehensive Metabolic (CMP) 04/04/2016 [facility] Sodium 132 mmol/L Low 134-142 Potassium 4.6 mmol/L 3.5-5.2 Chloride 98 mmol/L 97-109 Carbon Dioxide 29 mmol/L 24-34 Glucose 67 mg/dL Low 70-105 BUN 17 mg/dL 6-26 Creatinine 0.6 mg/dL 0.5-1.4 Calcium 9.2 mg/dL 8.5-10.2 Total Protein 6.9 g/dL 6.0-8.0 Albumin 4.1 g/dL 3.6-4.9 Globulin 2.8 g/dL 2.0-3.5 A/G Ratio 1.5 Ratio 1.0-2.2 Total Bilirubin 0.4 mg/dL 0.1-1.3 Alkaline Phosphatase 69 U/L 24-140 Alt 9 U/L 3-42 Ast 14 U/L 8-42 Anion Gap 10 mmol/L 6-14 Celeste Egfr >60 >60 45 Non Celeste Egfr >60 >60 46 Laboratory test 04/04/2016 [facility] Vit D,25 35 ng/mL 31-100 finding Hydroxy Laboratory test 12/13/2015 [facility] Phenytoin 14.5 ug/mL (10.0-20.0) 47 finding Ua RFX 11/23/2015 [facility] Urine Color YELLOW N Yellow 48 Microscopic & (315)- - Cult If Inicated Urine Clarity CLEAR N Clear Urine Glucose - Dipstick NEGATIVE mg/dL N Negative Urine Bilirubin - Dipstick NEGATIVE N Negative Urine Ketone NEGATIVE mg/dL N Negative Urine Specific [place] 1.010 N 1.010-1.030 Urine Blood NEGATIVE N Negative Urine PH 6.0 Low 6.5-7.5 Urine Protein - Dipstick NEGATIVE mg/dL N Negative Urine Urobilinogen - Dipstick 0.2 E.U./dL N 0.2-1.0 Urine Nitrite - Dipstick NEGATIVE N Negative Urine Leuk Esterase NEGATIVE N Negative Source: URINE, CLEAN CAT <SEE NOTE> 49 CBS W/Automated Diff 11/23/2015 [facility] White Blood 6.7 K/uL N 3.4-10.5 (315)- - Count Red Blood Count 4.48 M/uL N 4.20-5.80 Hemoglobin 14.1 gm/dL N 12.8-17.0 Hematocrit 41.0 % N 38.0-48.0 Mean Cell Volume 91.5 fl N 80.0-96.0 Mean Corpuscular HGB 31.5 pg N 27.0-33.0 Mean Corpuscular HGB Conc 34.4 g/dL N 31.7-36.0 Platelet Count 266 K/uL N 150-400 Red Cell Distri Width SD 38.6 fl N 36-51 Red Cell Distri Width %CV 11.7 % N 11.6-15.8 Mean Platelet Volume 9.2 fL N 6.6-10.6 Neut% 71.3 % N 33.0-73.0 Lymph % 20.7 % N 17.0-56.0 [place] % 7.2 % N 0.0-10.0 Eo% 0.7 % N 0.0-5.0 Bas% 0.1 % N 0.1-1.0 Neut# 4.76 K/uL N 1.8-7.0 Lymph # 1.38 K/uL Low 1.8-7.0 [place] # 0.48 K/uL N 0.0-0.8 Eos # 0.05 K/uL N 0.0-0.5 Baso # 0.01 K/uL Low 0.1-0.2 Comprehensive Metabolic 11/23/2015 [facility] Glucose 119 mg/dL High 74-106 Panel (315)- - BUN 14 mg/dL N 7-18 Creatinine 0.7 mg/dL N 0.6-1.3 Glom Filtration Rate, Estimate >60 mL/min N >60 If >60 mL/min N >60 50 BUN/Creat 20.0 ratio N Sodium 135 mmol/L Low 136-145 Potassium 4.0 mmol/L N 3.5-5.1 Chloride 101 mmol/L N 98-107 Carbon Dioxide 28 mmol/L N 21-32 Anion Gap 6 mEq/L Low 8-16 Calcium 9.0 mg/dL N 8.5-10.1 Total Protein 7.8 g/dL N 6.4-8.2 Albumin 3.8 g/dL N 3.4-5.0 Globulin 4.0 g/dL N 1.9-4.3 Alb/Glob 1.0 ratio N Bilirubin,Total 0.3 mg/dL N 0.2-1.0 Sgot/Ast 14 U/L Low 15-37 51 SGPT/Alt 15 U/L N 12-78 Alkaline Phosphatase 103 U/L N 45-117 Laboratory test finding 11/23/2015 [facility] CK 69 U/L N 39-308 (315)- - Troponin-I < 0.015 ng/mL N 52 Phenytoin (Dilantin) 12.7 ug/mL N 10.0-20.0 PSA Total And Free -RL 11/07/2015 [facility] PSA Total 0.5 ng/mL (0.0-4.0) PSA Free 0.2 ng/mL PSA % Free 40 % 53 CBC With Auto Diff 04/02/2015 [facility] WBC 4.4 K/uL 4.1-11.0 RBC 4.52 M/uL Low 4.60-6.10 Hemoglobin 13.7 gm/dL 13.5-18.0 Hematocrit 41.4 % 41.0-53.0 MCV 91.4 fL 80.0-97.0 MCH 30.4 pg 27.0-32.0 MCHC 33.2 g/dL 32.0-36.0 RDW 12.4 % 11.5-14.5 PLT Count 238 K/ul 140-400 Neutrophil 71.7 % 35.0-75.0 Lymphocyte 16.1 % 16.0-52.0 Monocyte 11.4 % High 2.0-10.0 Eosinophil 0.4 % 0.0-5.0 Basophil 0.4 % 0.0-4.0 Abs Neutrophils 3.2 K/uL 2.1-8.0 Abs Lymphocytes 0.7 K/uL Low 0.8-5.5 Abmon 0.5 K/uL 0.1-1.0 Abs Eosinophils 0.0 K/uL 0.0-0.5 Abs Basophils 0.0 K/uL 0.0-0.3 Comprehensive Metabolic (CMP) 04/02/2015 [facility] Sodium 132 mmol/L Low 134-142 Potassium 5.0 mmol/L 3.5-5.2 Chloride 99 mmol/L 97-109 Carbon Dioxide 29 mmol/L 24-34 Glucose 82 mg/dL 70-105 BUN 18 mg/dL 6-26 Creatinine 0.6 mg/dL 0.5-1.4 Calcium 9.4 mg/dL 8.5-10.2 Total Protein 6.8 g/dL 6.0-8.0 Albumin 3.9 g/dL 3.6-4.9 Globulin 2.9 g/dL 2.0-3.5 A/G Ratio 1.3 Ratio 1.0-2.2 Total Bilirubin 0.3 mg/dL 0.1-1.3 Alkaline Phosphatase 82 U/L 24-140 Alt 9 U/L 3-42 Ast 11 U/L 8-42 Anion Gap 9 mmol/L 6-14 Celeste Egfr >60 >60 54 Non Celeste Egfr >60 >60 55 Laboratory test finding 04/02/2015 [facility] PSA 0.780 ng/mL 0.000-4.000 56 Folate >24.2 ng/ml 5.9-24.8 Laboratory test 03/22/2015 [facility] Phenytoin 12.7 ug/mL (10.0-20.0) 57 finding Laboratory test 03/30/2014 [facility] PSA 3.260 ng/mL 0.000-4.000 58 finding Laboratory test 10/11/2013 N2N/CCD Import Urine Bilirubin Negative Negative finding - Dipstick Urine Blood Negative Negative Urine Clarity Clear Clear Urine Color Yellow Yellow Urine Epithelial Cells None Seen None Seen /lpf Urine Glucose - Dipstick Negative mg/dL Negative Urine Ketone Negative mg/dL Negative Urine Leuk Esterase Negative Negative Urine Nitrite - Dipstick Negative Negative Urine PH 6.0 Low 6.5-7.5 Urine Protein - Dipstick Negative mg/dL Negative Urine RBC None Seen rbc/hpf 0-7 Urine Specific [place] <=1.005 Low 1.010-1.030 Urine Urobilinogen - Dipstick 0.2 E.U./dL 0.2-1.0 Urine WBC None Seen wbc/hpf 0-7 Laboratory test finding 03/28/2013 N2N/CCD Import % Baso. 1.0 % 0.0-2.0 % Eos. 2.0 % 0.0-4.0 % Lymph 23 % 20-44 % [place] 8.0 % 2.0-10.0 % [place] 66 % 50-70 A/G Ratio 1.4 ratio Low 1.6-2.2 Absolute Baso. 0.0 K/ul 0.0-0.3 Absolute Eos. 0.1 K/ul 0.0-0.5 Absolute Lymph. 0.9 K/ul 0.8-4.8 Absolute [place]. 0.3 K/ul 0.1-1.0 Absolute [place]. 2.63 K/ul 2.05-7.63 Albumin 4.2 g/dL 3.5-5.0 Alk. Phos. 93.0 U/L 30.0-126.0 Alt 11.0 U/L Low 21.0-72.0 Anion Gap 9.0 mmol/L Low 10.0-20.0 Ast 18.0 U/L 17.0-59.0 BUN 15.0 mg/dL 9.0-21.0 BUN/Creat Ratio 16.7 ratio 12.0-20.0 Calcium 10.1 mg/dL 8.7-10.5 Chloride 102.0 mmol/L 98.0-107.0 Co2 24.0 mmol/L 22.0-30.0 Creatinine-Serum 0.9 mg/dL 0.8-1.5 Globulin 3.1 g/dL 2.7-4.3 Glucose 205.0 mg/dL High 75.0-110.0 HCT 47.0 % 37.0-51.0 HGB 15.7 Gm/dl 12.0-16.0 MCH 31.0 pg 26.0-32.0 MCHC 33.4 g/dL 31.0-36.0 MCV 93.0 Fl 80.0-97.0 MPV 6.1 fL 6.0-10.0 PLT 249 K/ul 140-440 PSA 0.5 ng/mL 0.0-4.0 Potasium 4.3 mmol/L 3.6-5.0 RBC 5.1 M/ul 4.2-6.3 RDW 11.0 % 11.0-14.5 Sodium 135.0 mmil/L 135.0-145.0 Total Bilirubin 0.3 mg/dL 0.2-1.3 Total Protein 7.3 g/dL 6.3-8.2 WBC 4.0 K/ul 4.0-10.9 eGFR 93.8 mi/minper1.73 59 LDL Cholesterol Profile 10/27/2012 N2N/CCD Import Cholesterol 164 mg/dL 120-200 HDL Cholesterol 55 mg/dL 29-83 LDL-Cholesterol 84 mg/dL 62-185 Triglycerides 123 mg/dL 16-231 Laboratory test finding 10/27/2012 N2N/CCD Import Alb/Glob 1.0 ratio Albumin 3.9 g/dL 3.5-5.0 Alkaline Phosphatase 106 U/L 50-136 Anion Gap 11 mEq/L 8-16 BUN 11 mg/dL 5-23 BUN/Creat 18.3 ratio Bilirubin,Total 0.3 mg/dL 0.2-1.2 Calcium 8.9 mg/dL 8.5-10.1 Carbon Dioxide 28 mEq/L 18-29 Chloride 99 mmol/L 98-107 Creatinine 0.6 mg/dL 0.5-1.4 Globulin 3.8 g/dL 1.9-4.3 Glom Filtration Rate, Estimate >60 mL/min >60 Glucose 91 mg/dL 76-115 Hematocrit 44.2 % 38.0-48.0 Hemoglobin 15.0 gm/dL 12.8-17.0 If >60 mL/min >60 60 Mean Cell Volume 92.3 fl 80.0-96.0 Mean Corpuscular HGB 31.3 pg 27.0-33.0 Mean Corpuscular HGB Conc 33.9 g/dL 31.7-36.0 Mean Platelet Volume 9.3 fL 6.6-10.6 Phenytoin (Dilantin) 12.3 ug/mL 10.0-20.0 Platelet Count 253 K/uL 150-400 Potassium 4.0 mmol/L 3.5-5.1 Red Blood Count 4.79 M/uL 4.20-5.80 Red Cell Distri Width %CV 11.6 % 11.6-15.8 SGPT/Alt 16 U/L Low 30-65 Sgot/Ast 16 U/L 16-40 Sodium 134 mmol/L Low 136-145 Total Protein 7.7 g/dL 6.3-8.0 White Blood Count 4.7 K/uL 3.4-10.5 Laboratory test finding 03/26/2012 N2N/CCD Import % Baso. 0.9 % 0.0-2.0 % Eos. 3.5 % 0.0-4.0 % Lymph 36 % 20-44 % [place] 9.9 % 2.0-10.0 % Jel[place] 49 % Low 50-70 A/G Ratio 1.3 ratio Low 1.6-2.2 Absolute Baso. 0.0 K/ul 0.0-0.3 Absolute Eos. 0.1 K/ul 0.0-0.5 Absolute Lymph. 1.5 K/ul 0.8-4.8 Absolute [place]. 0.4 K/ul 0.1-1.0 Absolute [place]. 1.97 K/ul Low 2.05-7.63 Albumin 4.1 g/dL 3.5-5.0 Alk. Phos. 81.0 U/L 30.0-126.0 Alt 10.0 U/L Low 21.0-72.0 Anion Gap 12.0 mmol/L 10.0-20.0 Ast 19.0 U/L 17.0-59.0 BUN 14.0 mg/dL 9.0-21.0 BUN/Creat Ratio 20.0 ratio 12.0-20.0 Calcium 10.0 mg/dL 8.7-10.5 Chloride 102.0 mmol/L 98.0-107.0 Co2 24.0 mmol/L 22.0-30.0 Creatinine-Serum 0.7 mg/dL Low 0.8-1.5 Globulin 3.1 g/dL 2.7-4.3 Glucose 94.0 mg/dL 75.0-110.0 HCT 47.5 % 37.0-51.0 HGB 15.5 Gm/dl 12.0-16.0 MCH 30.5 pg 26.0-32.0 MCHC 32.5 g/dL 31.0-36.0 MCV 93.7 Fl 80.0-97.0 MPV 6.9 fL 6.0-10.0 PLT 266 K/ul 140-440 PSA 0.5 ng/mL 0.0-4.0 Potasium 4.3 mmol/L 3.6-5.0 RBC 5.1 M/ul 4.2-6.3 RDW 10.6 % Low 11.5-14.5 Sodium 138.0 mmil/L 137.0-145.0 Total Bilirubin 0.4 mg/dL 0.2-1.3 Total Protein 7.2 g/dL 6.3-8.2 WBC 4.0 K/ul 4.0-10.9 eGFR 121.5 mi/minper1.7 61 Laboratory test finding 02/04/2012 N2N/CCD Import Alb/Glob 1.1 ratio Albumin 3.4 g/dL Low 3.5-5.0 Alkaline Phosphatase 72 U/L 50-136 Anion Gap 9 mEq/L 8-16 BUN 23 mg/dL 5-23 BUN/Creat 28.7 ratio Bas% 0.2 % 0.1-1.0 Baso # 0.01 K/uL Low 0.1-0.2 Bilirubin,Total 0.3 mg/dL 0.2-1.2 Calcium 8.4 mg/dL Low 8.5-10.1 Carbon Dioxide 26 mEq/L 18-29 Chloride 108 mmol/L High 98-107 Creatinine 0.8 mg/dL 0.5-1.4 Eo% 0.6 % 0.0-5.0 Eos # 0.03 K/uL 0.0-0.5 Globulin 3.1 g/dL 1.9-4.3 Glom Filtration Rate, Estimate >60 mL/min >60 Glucose 100 mg/dL 76-115 Hematocrit 40.5 % 38.0-48.0 Hemoglobin 14.0 gm/dL 12.8-17.0 If >60 mL/min >60 62 Lymph # 0.42 K/uL Low 1.2-4.0 Lymph % 8.0 % Low 17.0-56.0 Mean Cell Volume 91.6 fl 80.0-96.0 Mean Corpuscular HGB 31.7 pg 27.0-33.0 Mean Corpuscular HGB Conc 34.6 g/dL 31.7-36.0 Mean Platelet Volume 9.6 fL 6.6-10.6 [place] # 0.49 K/uL 0.0-0.6 [place] % 9.4 % 0.0-10.0 Neut# 4.28 K/uL 1.8-7.0 Neut% 81.8 % High 33.0-73.0 Phenytoin (Dilantin) 5.2 ug/mL Low 10.0-20.0 Platelet Count 201 K/uL 150-400 Potassium 4.3 mmol/L 3.5-5.1 Red Blood Count 4.42 M/uL 4.20-5.80 Red Cell Distri Width %CV 11.7 % 11.6-15.8 Red Cell Distri Width SD 38.6 fl 36-51 SGPT/Alt 15 U/L Low 30-65 Sgot/Ast 14 U/L Low 16-40 Sodium 139 mmol/L 136-145 Total Protein 6.5 g/dL 6.3-8.0 White Blood Count 5.2 K/uL 3.4-10.5 Laboratory test finding 03/24/2011 N2N/CCD Import PSA 0.49 ng/mL 0.00- 4.00 Laboratory test finding 2010 N2N/CCD Import Alb/Glob 1.2 Albumin 4.0 g/dL 3.5-5.0 Alkaline Phosphatase 98 U/L 50-136 Anion Gap 10 mEq/L 8-16 BUN 15 mg/dL 5-23 BUN/Creat 21.4 Basic Metabolic Panel See Note 63 Bilirubin,Total 0.3 mg/dL 0.2-1.2 Calcium 8.5 mg/dL 8.5-10.1 Carbon Dioxide 30 mEq/L 21-32 Chloride 101 mEq/L 98-107 Creatinine 0.7 mg/dL 0.5-1.4 Globulin 3.3 gm/dL 1.9-4.3 Glom Filtration Rate, Estimate >60 mL/min >60 Glucose 98 mg/dL 76-115 Hematocrit 44.8 % 38.0-48.0 Hemoglobin 15.0 gm/dL 12.8-17.0 If >60 mL/min >60 64 Mean Cell Volume 93.3 fl 80.0-96.0 Mean Corpuscular HGB 31.3 pg 27.0-33.0 Mean Corpuscular HGB Conc 33.5 g/dL 31.7-36.0 Mean Platelet Volume 9.8 fL 6.6-10.6 Platelet Count 227 K/uL 150-400 Potassium 4.1 mEq/L 3.5-5.1 Red Blood Count 4.80 M/uL 4.20-5.80 Red Cell Distri Width %CV 11.4 % Low 11.6-15.8 SGPT/Alt 28 U/L Low 30-65 Sgot/Ast 21 U/L 16-40 Sodium 137 mEq/L 136-145 Total Protein 7.3 g/dL 6.3-8.0 White Blood Count 4.0 K/uL 3.4-10.5 Laboratory test 03/19/2009 N2N/CCD Import Phenytoin 4.4 ug/mL Low 10.0- 20.0 65 finding A/G Ratio 1.4 1.0-2.2 Absolute Basophils 0.026 K/ul 0.0-0.3 Absolute Eosinophils 0.036 K/ul 0.0-0.5 Absolute Lymphocytes 0.962 K/ul 0.8-4.8 Absolute Monocytes 0.371 K/ul 0.1-1.0 Absolute Neutrophils 2.28 K/ul 2.05-7.63 Albumin 4.1 g/dL 3.5-5.0 Alkaline Phosphatase 85 U/L 30-126 Alt 13 U/L Low 21-72 Ast 26 U/L 17-59 BUN 15 mg/dL 9-21 BUN/CR Ratio 20.9 Ratio High 12-20 Basophil 0.7 % 0-2 Calcium 9.6 mg/dL 8.7-10.5 Carbon Dioxide 30 mmol/L 22-30 Chloride 100 mmol/L 98-107 Creatinine, Serum 0.7 mg/dL Low 0.8-1.5 Eosinophil 1.0 % 0-4 Globulin 3.0 g/dL 2.7-4.3 Glucose 90 mg/dL 75-110 Hematocrit 41.3 % 37.0-51.0 Hemoglobin 14.1 GM/dl 12.0-16.0 Lymphocytes 26.2 % 20-44 MCH 30.9 pg 26.0-32.0 MCHC 34.2 g/dL 31.0-36.0 MCV 90 FL 80-97 Monocytes 10.1 % High 2-10.0 Neutrophils 62.0 % 50-70 Platelet Count 240 K/ul 140-440 Potassium 4.0 mmol/L 3.6-5.0 RBC 4.57 M/ul 4.2-6.3 RDW 10.4 % Low 11.5-14.5 Sodium 140 mmol/L 137-145 Total Bilirubin 0.2 mg/dL 0.2-1.3 Total Protein 7.1 g/dL 6.3-8.2 WBC 3.7 K/ul Low 4.1-10.9 Laboratory test finding 07/20/2007 N2N/CCD Import Alb/Glob 1.1 Albumin 3.9 g/dL 3.5-5.0 Alkaline Phosphatase 91 U/L 50-136 Anion Gap 10 mEq/L 8-16 BUN 15 mg/dL 5-23 BUN/Creat 25.0 Bas% 0.4 % 0.1-1.0 Baso # 0.0 K/uL Low 0.1-0.2 Bilirubin,Total 0.3 mg/dL 0.2-1.2 Calcium 9.2 mg/dL 8.5-10.1 Carbon Dioxide 31 mEq/L 21-32 Chloride 104 mEq/L 98-107 Creatinine 0.6 mg/dL 0.5-1.4 Eo% 3.1 % 0.0-5.0 Eos # 0.2 K/uL 0.0-0.5 Globulin 3.5 gm/dL 1.9-4.3 Glucose 89 mg/dL 76-115 Hematocrit 44.3 % 38.0-48.0 Hemoglobin 14.4 gm/dL 12.8-17.0 Lymph # 1.4 K/uL 1.2-4.0 Lymph % 29.2 % 17.0-56.0 Mean Cell Volume 91.9 fl 80.0-96.0 Mean Corpuscular HGB 29.9 pg 27.0-33.0 Mean Corpuscular HGB Conc 32.5 g/dL 31.7-36.0 Mean Platelet Volume 9.6 fL 6.6-10.6 [place] # 0.3 K/uL 0.0-0.6 [place] % 6.5 % 0.0-10.0 Neut# 2.9 K/uL 1.8-7.0 Neut% 60.8 % 33.0-73.0 Phenytoin (Dilantin) 4.5 ug/mL Low 10.0-20.0 Platelet Count 289 K/uL 150-400 Potassium 3.9 mEq/L 3.5-5.1 Red Blood Count 4.82 M/uL 4.20-5.80 Red Cell Distri Width %CV 11.8 % 11.6-15.8 Red Cell Distri Width SD 39 fl 36-51 SGPT/Alt 37 U/L 30-65 Sgot/Ast 19 U/L 16-40 Sodium 141 mEq/L 136-145 Total Protein 7.4 g/dL 6.3-8.0 White Blood Count 4.8 K/uL 3.4-10.5 LDL Cholesterol Profile 07/20/2007 N2N/CCD Import Cholesterol 170 mg/dL 120-200 HDL Cholesterol 42 mg/dL 32-96 LDL-Cholesterol 91 mg/dL 62-185 Triglycerides 183 mg/dL 0-210 Laboratory test finding 05/29/2006 N2N/CCD Import Alb/Glob 1.2 Albumin 4.0 g/dL 3.5-5.0 Alkaline Phosphatase 104 U/L 50-136 Anion Gap 10 mEq/L 8-16 BUN 13 mg/dL 5-23 BUN/Creat 18.5 Bas% 0.3 % 0.1-1.0 Baso # 0.0 K/uL Low 0.1-0.2 Bilirubin,Total 0.3 mg/dL 0.2-1.2 Calcium 9.4 mg/dL 8.5-10.1 Carbon Dioxide 30 mEq/L 21-32 Chloride 104 mEq/L 98-107 Creatinine 0.7 mg/dL 0.5-1.4 Eo% 2.5 % 0.0-5.0 Eos # 0.1 K/uL 0.0-0.5 Globulin 3.4 gm/dL 1.9-4.3 Glucose 96 mg/dL 76-115 Hematocrit 44.8 % 39.0-49.0 Hemoglobin 15.5 gm/dL 12.8-17.3 Lymph # 1.4 K/uL 1.2-4.0 Lymph % 32.4 % 17.0-56.0 Mean Cell Volume 91.1 fl 83.0-99.0 Mean Corpuscular HGB 31.6 pg 28.3-34.2 Mean Corpuscular HGB Conc 34.7 g/dL 32.0-35.5 Mean Platelet Volume 8.2 fl 6.0-9.9 [place] # 0.4 K/uL 0.0-0.6 [place] % 8.9 % 0.0-10.0 Neut# 2.5 K/uL 1.8-7.0 Neut% 55.9 % 33.0-73.0 Platelet Count 231 K/uL 145-400 Potassium 4.4 mEq/L 3.5-5.1 Red Blood Count 4.92 M/uL 4.60-5.60 Red Cell Distri Width %CV 11.6 % Low 12.3-15.8 SGPT/Alt 29 U/L Low 30-65 Sgot/Ast 16 U/L 16-40 Sodium 140 mEq/L 136-145 Total Protein 7.4 g/dL 6.3-8.0 White Blood Count 4.4 K/uL 4.3-10.5 1 SYNCOPAL EPISODES 2 URINE, CLEAN CATCH 3 Note: Persistent reduction for 3 months or more in an eGFR <60 mL/min/1.73 m2 defines CKD. Patients with eGFR values >/=60 mL/min/1.73 m2 may also have CKD if evidence of persistent proteinuria is present. The original MDRD equation for estimated GFR is not valid for patients less than 18 years of age. Additional information may be found at [email or web address] 4 0.0 - 0.045 ng/mL: Normal 0.046 - 0.5 ng/mL: Suggestive 0.6 - 1.5 ng/mL: Consistent 5 SYNCOPE VS SEIZURE 6 URINE, CLEAN CATCH 7 Note: Persistent reduction for 3 months or more in an eGFR <60 mL/min/1.73 m2 defines CKD. Patients with eGFR values >/=60 mL/min/1.73 m2 may also have CKD if evidence of persistent proteinuria is present. The original MDRD equation for estimated GFR is not valid for patients less than 18 years of age. Additional information may be found at [email or web address] 8 Values below the stated reference ranges of AST and ALT can be seen in normal populations. Clinical correlation is suggested. 9 0.0 - 0.045 ng/mL: Normal 0.046 - 0.5 ng/mL: Suggestive 0.6 - 1.5 ng/mL: Consistent 10 G40.909 11 Note: Persistent reduction for 3 months or more in an eGFR <60 mL/min/1.73 m2 defines CKD. Patients with eGFR values >/=60 mL/min/1.73 m2 may also have CKD if evidence of persistent proteinuria is present. The original MDRD equation for estimated GFR is not valid for patients less than 18 years of age. Additional information may be found at [email or web address] 12 check labs in 2 weeks [facility], low sodium, too much fluid? 13 Updated reference range on new analyzer 14 Updated reference range on new analyzer 15 Concerning GFR Guidelines: Normal function or mild renal disease, if clinically at risk: >/=60 mL/min Moderately decreased: 30-59 Severely decreased: 15-29 Renal failure: <15 Glomerular Filtration Rate (GFR) is estimated based on the MDRD equation, which assumes a steady state for creatinine as recommended by the National Kidney Disease Education Program in conjunction with the National Institutes of Health and the [employer] Kid[employer]. Clinical conditions in which it may be necessary to measure GFR by using clearance methods include extremes of age and body size, severe malnutrition or obesity, diseases of skeletal muscle, paraplegia or quadriplegia, vegetarian diet, rapidly changing kidney function, and calculation of the dose of potentially toxic drugs that are excreted by the kidneys. 16 Concerning GFR Guidelines for Americans: Normal function or mild renal disease, if clinically at risk: >/=60 mL/min Moderately decreased: 30-59 Severely decreased: 15-29 Renal failure: <15 17 Updated Reference Range 18 PERFORMED AT [address] [place] [address] Unless otherwise specified, testing performed [place] [address] 19 SINCE PHENYTOIN IS HIGHLY PROTEIN BOUND, THE LEVEL MUST BE ADJUSTED FOR PATIENTS WITH LOW ALBUMIN AND/OR RENAL FAILURE. PLEASE CONTACT THE PHARMACY DEPT WITH QUESTIONS. Unless otherwise specified, testing [place] [address] 20 in 2 mo letter , starting anemia 21 Updated reference range on new analyzer 22 Updated reference range on new analyzer 23 Concerning GFR Guidelines: Normal function or mild renal disease, if clinically at risk: >/=60 mL/min Moderately decreased: 30-59 Severely decreased: 15-29 Renal failure: <15 Glomerular Filtration Rate (GFR) is estimated based on the MDRD equation, which assumes a steady state for creatinine as recommended by the National Kidney Disease Education Program in conjunction with the National Institutes of Health and the National Kidney Foundation. Clinical conditions in which it may be necessary to measure GFR by using clearance methods include extremes of age and body size, severe malnutrition or obesity, diseases of skeletal muscle, paraplegia or quadriplegia, vegetarian diet, rapidly changing kidney function, and calculation of the dose of potentially toxic drugs that are excreted by the kidneys. 24 Concerning GFR Guidelines for Americans: Normal function or mild renal disease, if clinically at risk: >/=60 mL/min Moderately decreased: 30-59 Severely decreased: 15-29 Renal failure: <15 25 Updated Reference Range 26 today letter syncope 27 Updated reference range on new analyzer 28 Updated reference range on new analyzer 29 Concerning GFR Guidelines for Americans: Normal function or mild renal disease, if clinically at risk: >/=60 mL/min Moderately decreased: 30-59 Severely decreased: 15-29 Renal failure: <15 30 Concerning GFR Guidelines: Normal function or mild renal disease, if clinically at risk: >/=60 mL/min Moderately decreased: 30-59 Severely decreased: 15-29 Renal failure: <15 Glomerular Filtration Rate (GFR) is estimated based on the MDRD equation, which assumes a steady state for creatinine as recommended by the National Kidney Disease Education Program in conjunction with the National Institutes of Health and the National Kidney Foundation. Clinical conditions in which it may be necessary to measure GFR by using clearance methods include extremes of age and body size, severe malnutrition or obesity, diseases of skeletal muscle, paraplegia or quadriplegia, vegetarian diet, rapidly changing kidney function, and calculation of the dose of potentially toxic drugs that are excreted by the kidneys. 31 Updated Reference Range 32 do now Fastin hours 33 today lette r 34 SINCE PHENYTOIN IS HIGHLY PROTEIN BOUND, THE LEVEL MUST BE ADJUSTED FOR PATIENTS WITH LOW ALBUMIN AND/OR RENAL FAILURE. PLEASE CONTACT THE PHARMACY DEPT WITH QUESTIONS. Unless otherwise specified, testing performed by [facility] [address] [place] [id number] 35 in 3-4 weeks, fu syncope, retirement pt suspect dehydration 36 S/CO Ratio >/=1.0 is REACTIVE. S/CO <5.0 is Low Reactive. S/CO >/= 5.0 is High Reactive. Effective Oct 10, 2016 all anti-HCV reactive samples are sent for quantitative PCR confirmation. 37 Updated reference range on new analyzer 38 Updated reference range on new analyzer 39 Concerning GFR Guidelines for Americans: Normal function or mild renal disease, if clinically at risk: >/=60 mL/min Moderately decreased: 30-59 Severely decreased: 15-29 Renal failure: <15 40 Concerning GFR Guidelines: Normal function or mild renal disease, if clinically at risk: >/=60 mL/min Moderately decreased: 30-59 Severely decreased: 15-29 Renal failure: <15 Glomerular Filtration Rate (GFR) is estimated based on the MDRD equation, which assumes a steady state for creatinine as recommended by the National Kidney Disease Education Program in conjunction with the National Institutes of Health and the National Kidney Foundation. Clinical conditions in which it may be necessary to measure GFR by using clearance methods include extremes of age and body size, severe malnutrition or obesity, diseases of skeletal muscle, paraplegia or quadriplegia, vegetarian diet, rapidly changing kidney function, and calculation of the dose of potentially toxic drugs that are excreted by the kidneys. 41 Updated reference range on new analyzer 42 SYNCOPE X3 43 URINE, CLEAN CATCH 44 TODAY 45 Concerning GFR Guidelines for Americans: Normal function or mild renal disease, if clinically at risk: >/=60 mL/min Moderately decreased: 30-59 Severely decreased: 15-29 Renal failure: <15 46 Concerning GFR Guidelines: Normal function or mild renal disease, if clinically at risk: >/=60 mL/min Moderately decreased: 30-59 Severely decreased: 15-29 Renal failure: <15 Glomerular Filtration Rate (GFR) is estimated based on the MDRD equation, which assumes a steady state for creatinine as recommended by the National Kidney Disease Education Program in conjunction with the National Institutes of Health and the National Kidney Foundation. Clinical conditions in which it may be necessary to measure GFR by using clearance methods include extremes of age and body size, severe malnutrition or obesity, diseases of skeletal muscle, paraplegia or quadriplegia, vegetarian diet, rapidly changing kidney function, and calculation of the dose of potentially toxic drugs that are excreted by the kidneys. 47 SINCE PHENYTOIN IS HIGHLY PROTEIN BOUND, THE LEVEL MUST BE ADJUSTED FOR PATIENTS WITH LOW ALBUMIN AND/OR RENAL FAILURE. PLEASE CONTACT THE PHARMACY DEPT WITH QUESTIONS. Unless otherwise specified, testing performed by [facility] [address] [place] [id number] 48 TO BE SEEN 49 URINE, CLEAN CATCH 50 Note: Persistent reduction for 3 months or more in an eGFR <60 mL/min/1.73 m2 defines CKD. Patients with eGFR values >/=60 mL/min/1.73 m2 may also have CKD if evidence of persistent proteinuria is present. The original MDRD equation for estimated GFR is not valid for patients less than 18 years of age. Additional information may be found at www.[email or web address]. 51 Values below the stated reference ranges of AST and ALT can be seen in normal populations. Clinical correlation is suggested. 52 0.0 - 0.045 ng/mL: Normal 0.046 - 0.5 ng/mL: Suggestive 0.6 - 1.5 ng/mL: Consistent 53 % FREE PSA PROBABILITY OF CANCER 0 - 10% 56% 10 - 15% 28% 15 - 20% 20% 20 - 25% 16% GREATER THAN 25% 8% THE FREE PSA PERCENTAGE IS AN AID IN DISTINGUISHING PROSTATE CANCER FROM BENIGN PROSTATIC CONDITIONS IN MEN AGE 50 AND OLDER WITH A TOTAL PSA BETWEEN 3 AND 10 NG/ML AND NEGATIVE DIGITAL RECTAL EXAMINATION FINDINGS. PROSTATIC BIOPSY IS REQUIRED FOR THE DIAGNOSIS OF CANCER. (See: JUANI 1998; 279: [id number]) METHOD USED TO ASSAY BOTH FREE PSA AND TOTAL PSA IS [employer]UN[employer] FREE PSA AND TOTAL PSA. RESULTS SHOULD NOT BE INTERPRETED ABSOLUTE EVIDENCE FOR THE PRESENCE OR ABSENCE OF MALIGNANT DISEASE. VALUES OBTAINED WITH DIFFERENT ASSAY METHODS OR KITS CANNOT BE USED INTERCHANGEABLY. Unless otherwise specified, testing performed by [facility] [address] [place] [id number] 54 Concerning GFR Guidelines for Americans: Normal function or mild renal disease, if clinically at risk: >/=60 mL/min Moderately decreased: 30-59 Severely decreased: 15-29 Renal failure: <15 55 Concerning GFR Guidelines: Normal function or mild renal disease, if clinically at risk: >/=60 mL/min Moderately decreased: 30-59 Severely decreased: 15-29 Renal failure: <15 Glomerular Filtration Rate (GFR) is estimated based on the MDRD equation, which assumes a steady state for creatinine as recommended by the National Kidney Disease Education Program in conjunction with the National Institutes of Health and the National Kidney Foundation. Clinical conditions in which it may be necessary to measure GFR by using clearance methods include extremes of age and body size, severe malnutrition or obesity, diseases of skeletal muscle, paraplegia or quadriplegia, vegetarian diet, rapidly changing kidney function, and calculation of the dose of potentially toxic drugs that are excreted by the kidneys. 56 Beginning 04/13/06 PSA values assayed at [facility] uses chemiluminescence methodology manufactured by [employer] for use on the DXI analyzer. Values obtained with different assay methods or kits can not be used interchangeably. Serum PSA measurement is not an absolute test for malignancy. The PSA value should be used in conjunction with information available from clinical evaluation and other diagnostic procedures. 57 SINCE PHENYTOIN IS HIGHLY PROTEIN BOUND, THE LEVEL MUST BE ADJUSTED FOR PATIENTS WITH LOW ALBUMIN AND/OR RENAL FAILURE. PLEASE CONTACT THE PHARMACY DEPT WITH QUESTIONS. Unless otherwise specified, testing performed by [facility] [address] [place] [id number] 58 Beginning 04/13/06 PSA values assayed at [facility] uses an EIA methodology manufactured by [employer] for use on the DXI analyzer. Values obtained with different assay methods or kits can not be used interchangeably. Serum PSA measurement is not an absolute test for malignancy. The PSA value should be used in conjunction with information available from clinical evaluation and other diagnostic procedures. 59 For -Gibralt[place] patients multiply result by 1.180 60 Note: Persistent reduction for 3 months or more in an eGFR <60 mL/min/1.73 m2 defines CKD. Patients with eGFR values >/=60 mL/min/1.73 m2 may also have CKD if evidence of persistent proteinuria is present. The original MDRD equation for estimated GFR is not valid for patients less than 18 years of age. Additional information may be found at www.[email or web address]. 61 For -[place] patients multiply result by 1.180 62 Note: Persistent reduction for 3 months or more in an eGFR <60 mL/min/1.73 m2 defines CKD. Patients with eGFR values >/=60 mL/min/1.73 m2 may also have CKD if evidence of persistent proteinuria is present. The original MDRD equation for estimated GFR is not valid for patients less than 18 years of age. Additional information may be found at www.[email or web address]. 63 01/07/10 KEENAN AGUERO 64 Note: Persistent reduction for 3 months or more in an eGFR <60 mL/min/1.73 m2 defines CKD. Patients with eGFR values >/=60 mL/min/1.73 m2 may also have CKD if evidence of persistent proteinuria is present. The original MDRD equation for estimated GFR is not valid for patients less than 18 years of age. Additional information may be found at [email or web address]. 65 FASTING Procedures Date Code Description Status 06/06/2016 04832 Measure Blood Oxygen Level Single Determination Completed 11/07/2015 99192 Electrocardiogram Complete Completed 03/22/2015 90968 X-Ray Toe(S) Two Views Completed 03/14/2014 00132 Measure Blood Oxygen Level Single Determination Completed 03/24/2011 07242 Colonoscopy Flexible Diagnostic Completed 06/07/2010 16674 Measure Blood Oxygen Level Single Determination Completed 01/18/2008 98364 Remove Impacted Cerumen Requiring Instrumentation Completed 12/16/2005 90529 Remove Impacted Cerumen Requiring Instrumentation Completed Encounters Type Date Location Provider Dx Diagnosis Office Visit 07/22/2017 1:00p [facility] Tamera Escoto MD R55 Syncope and collapse G40.909 Epilepsy, unsp, not intractable, without status epilepticus F84.0 Autistic disorder Z68.25 Body mass index (BMI) 25.0-25.9, adult Office Visit 04/06/2017 9:30a [facility] Tamera Escoto MD Z00.00 Encntr for general adult medical exam w/o abnormal findings G40.909 Epilepsy, unsp, not intractable, without status epilepticus J30.9 Allergic rhinitis, unspecified H90.5 Unspecified sensorineural hearing loss K59.00 Constipation, unspecified F84.0 Autistic disorder Z12.11 Encounter for screening for malignant neoplasm of colon Z12.5 Encounter for screening for malignant neoplasm of prostate Office Visit 03/04/2017 4:15p [facility] Tamera Escoto MD R55 Syncope and collapse Z11.59 Encounter for screening for other viral diseases Z12.11 Encounter for screening for malignant neoplasm of colon F84.0 Autistic disorder Office Visit 06/06/2016 11:00a [facility] Emeka Bocanegra DO J06.9 Acute upper respiratory infection, unspecified Office Visit 04/04/2016 10:30a [facility] Emeka Bocanegra DO F84.0 Autistic disorder E53.8 Deficiency of other specified B group vitamins K59.00 Constipation, unspecified H90.5 Unspecified sensorineural hearing loss J30.9 Allergic rhinitis, unspecified G40.909 Epilepsy, unsp, not intractable, without status epilepticus Z00.00 Encntr for general adult medical exam w/o abnormal findings Z68.24 Body mass index (BMI) 24.0-24.9, adult Z12.11 Encounter for screening for malignant neoplasm of colon Office Visit 11/07/2015 9:45a [facility] Emeka Bocanegra, Z13.6 Encounter for screening DO for cardiovascular disorders Office Visit 04/02/2015 10:30a [facility] Emeka Bocanegra, G40.909 Epilepsy, unsp, not DO intractable, without status epilepticus F84.0 Autistic disorder K59.00 Constipation, unspecified F79 Unspecified intellectual disabilities H90.5 Unspecified sensorineural hearing loss Z12.5 Encounter for screening for malignant neoplasm of prostate J30.9 Allergic rhinitis, unspecified E53.8 Deficiency of other specified B group vitamins Office Visit 03/22/2015 4:00p [facility] Emeka Bocanegra DO G40.909 Epilepsy, unsp, not intractable, without status epilepticus M79.672 Pain in LEFT foot Office Visit 02/12/2015 9:00a [facility] Emeka Bocanegra, Z01.818 Encounter for other DO preprocedural examination K02.9 Dental caries, unspecified F79 Unspecified intellectual disabilities F84.0 Autistic disorder G40.909 Epilepsy, unsp, not intractable, without status epilepticus K59.00 Constipation, unspecified H90.5 Unspecified sensorineural hearing loss Office Visit 03/30/2014 10:30a [facility] Emeka Bocanegra DO 319 Mental Retardation Unspec 299.00 Autistic Disorder Current 345.90 Epilepsy Unspec W/O Intractable 564.00 Constipation Unspecified 389.10 Hearing Loss Sensorineural Unspec V76.44 Screening For Malig Javed Prostate 477.9 Rhinitis Allergic Cause Unspec Office Visit 03/14/2014 11:00a [facility] Elidia Lord PA 465.9 URI Upper Respiratory Infections Acute Unspec Sites Plan of Treatment 04/08/2018 - Tamera Escoto MDZ00.00 Encounter for general adult medical examination without abnoNew Labs:Lipid, Ordered: 04/08/18Comments:Well adult male. medicare physicalWellness form reviewed, no concerns. Depression screen: upon review of signs and symptoms with exam assessment pt does not appear depressed.Functional capacity and daily living skills: upon review of signs and symptoms through direct questioning, pt appears stable and adequately safe to continue in in current living situation.Screening for colon cancer: discussed Screening for prostate cancer discussed. Immunizations reviewed Tetanus booster obtain tdap at drug storeRecommend Shingrix series. obtain at drug store. Consider Hep A series for travelAnnual flu vax recommended Health care proxy -- has guardianEncourage annual optho and periodic dental evaluations. med review suggests mult labs, insurance will not cover unless there is a diagnosis and there is medical necessity. I would like to know the surgery history oon his abdomen please. Healthy lifestyle recommendations. Encouraged healthy diet with meats simply prepared, fresh fruits and veg when able also simply prepared , whole grains, 3 dairies per day non fat. Please consume a healthy omega-3 fat with each meal such as nuts, olive oil, avocado, fish. Encouraged daily exercise 30 - 60 min daily/150min per week. Encouraged at least 2 qrts water per day with more for sweaty exercise. [employer] 7-8 hours of sleep at night. Avoid tobacco and drugs and alcoholWork on your "happy factors", meaning hobbies andthings you do day to day. Engaging in a health lifestyle may decrease your risk for illnesses and may improve your quality of lifeFollow up: llabs today; sign release for last Dr Sharp full office note with med list; next visit in 6 mo for oc15 rtn fuR55 Syncope and collapseComments:recent spell of syncope vs seizureno sequenlaereassuring workup per ERsmendota care if reoccurscheck bp and heart rate immediately when gnwktvbY37.0 Autistic disorderComments:Autism, limited communication. Limited ability to understand as well. Effects current situation. Monitor Psychiatric meds per Dr Sharp, I don't have arecent ov note to verify treatment so will request.E87.1 Hypo- osmolality and hyponatremiaComments:ho this, check labsG40.909 Epilepsy, unspecified, not intractable, without status epileNew Labs:Phenytoin-RL, Ordered : 04/08/18CBC with Auto Diff-fcmg, Ordered: 04/08/18Comprehensive Met Panel-FCMG , Ordered: 04/08/18Comments:remains seizure free, continues f/u with neurologist , continue to monitor labs ordered cbc cmp, willorder dilantin Dr LeaK59.00 Constipation, unspecifiedComments:SYMPTOMS ARE CONTROLLED WITH CURRENT THERAPY. CONTINUE THE SAME.H90.5 Unspecified sensorineural hearing lossComments: FOLLOWS WITH DR WHITESIDE. YEARLY HEARING EXAM WITH NOOKXOZFFX43.0 Acne vulgarisComments:acne controlled seek care if seems to worsencontinue medsZ12.11 Encounter for screening for malignant neoplasm of colonComments: Colon cancer screening discussedNo increased risk factors identified to suggest need for colonoscopyRecommend colon cancer screening as it's preventive for colon cancer by removing polyps or small cancers. Recommend either colonoscopy every 10 yr, cologuard stool sample every 3 (check insurance for coverage) or annual FIT test for blood in the stool. Colonoscopy is the gold standard The idea is to identify cancer early or to identify and remove polyps before they can grow and become cancer. Recommend staff discuss with guardian the use of colonoscopy for colon cancer screening, if they feel he would do treatment. He has had trouble getting sample before. Discussed obtaining sample for tissuepaper itself, try what you can. We will attempt cologuard this year as that is good for 3 years. Ifhe can't do this, will attempt FIT. There are careful standards for getting sample once obtained fedex so arrives within 3 days at testingfaciility Note: 30% of adults with polyps, can prevent colon cancer, Pt is aware of missed opportunity for early detection and treatment of colon polyps and cancer . Please seek care if you develop any symptoms of blood in stool, black stool changing bowel habits such as alternating diarrhea and constipation, or abd painZ12.5 Encounter for screening for malignant neoplasm of prostateComments:Discussed prostate cancer screening. Advised pt/ staff that the usptf has recommended against psa testing as there is a higher rate of false positives and need for biopsies, however, other societies cont to recommend psa testing. Discussed SOLA as part of that process as well. Given pt' s mental difficulties, I suspect he would not tolerate prostate cancer screening , would not do well with prostate cancer treatment, therefore psa will not be drawn for screening. If there is another reason to consider testing, let me know. He has ho elev psa in past and rechecks were normal .Z13.6 Encounter for screening for cardiovascular disordersNew Labs:Lipid, Ordered: 04/08/18Comments: pharmacy review recommends lipid testing, orderd, I'm not sure that we would necessarily treat if elevated.AllNew Medication:Phenytoin Sodium Extended 100 mg - 3 by mouth every EveningPropranolol HCL ER 80 mg - 1 by mouth every day
[2018-04-23 17:14] VITALS: BP 147/91
--- NOTE | 2018-04-23 17:31 | UC ---
Complaint Male HPI - HPI Summary HPI Summary: 58-year-old male with mental retardation who [facility] in a [facility] comes in with a chief complaint of apparent dysuria today. When he was at his day program when he was urinating he was slapping his leg and appeared to be in pain. When he got back to his regular [facility]. Obtained a urine and had him come here for further evaluation. By report when he urinated back at the [facility] he did not appear to be in any sort of pain. No recent fevers he's had a recent normal bowel movement.. Not obviously in pain otherwise. - History of Current Complaint Chief Complaint: UCGU Stated Complaint: URINARY COMPLAINT(WILL BRING SPECIMEN) Time Seen by Provider: 04/23/18 17:22 Pain Intensity: 0 - Allergies/Home Medications Allergies/Adverse Reactions: Allergies Allergy/AdvReac Type Severity Reaction Status Date / Time Rentin A Allergy Unknown Uncoded 04/23/18 17:09 Reaction Details Home Medications: Home Medications Benztropine TAB* [Cogentin TAB*] 0.5 mg BID 04/23/18 [History Confirmed 04/23/18 ] Docusate CAP* [Colace Cap*] 1 cap BID 04/23/18 [History Confirmed 04/23/18] Folic Acid TAB* [Folvite TAB*] 1 tab DAILY 04/23/18 [History Confirmed 04/23/18] Loratadine 1 cap DAILY 04/23/18 [History Confirmed 04/23/18] Nefazodone HCl TAB* [Serzone TAB*] 200 mg BID 04/23/18 [History Confirmed ] Phenytoin CAP(*) [Dilantin CAP(*)] 200 mg PO QAM 04/23/18 [History Confirmed 10/04] Phenytoin CAP(*) [Dilantin CAP(*)] 300 mg QPM 04/23/18 [History Confirmed ] busPIRone TAB* [Buspar TAB*] 1 tab BID 04/23/18 [History Confirmed 04/23/18] PMH/Surg Hx/FS Hx/Imm Hx Previously Healthy: Yes - mr - Surgical History Surgical History: Yes Surgery Procedure, Year, and Place: LAPAROTOMY FOR FOREIGN BODY REMOVAL. SURGICAL TOOTH REMOVAL - Family History Known Family History: Positive: Unknown - not verbal with me - Social History Alcohol Use: None Substance Use Type: None Smoking Status (MU): Never Smoked Tobacco - Immunization History Vaccination Up to Date: Yes Review of Systems All Other Systems Reviewed And Are Negative: Yes Constitutional: Positive: Negative Skin: Positive: Negative Eyes: Positive: Negative ENT: Positive: Negative Respiratory: Positive: Negative Cardiovascular: Positive: Negative Gastrointestinal: Positive: Negative Genitourinary: Positive: Dysuria Motor: Positive: Negative Neurovascular: Positive: Negative Musculoskeletal: Positive: Negative Neurological: Positive: Negative Psychological: Positive: Negative Is Patient Immunocompromised?: No Physical Exam Triage Information Reviewed: Yes Appearance: Well-Appearing, No Pain Distress, Well-Nourished Vital Signs: Initial Vital Signs Temp 98.4 F 04/23/18 17:09 Pulse 71 04/23/18 17:09 Resp 18 04/23/18 17:09 BP 147/91 04/23/18 17:09 Pulse Ox 100 04/23/18 17:09 Vital Signs Reviewed: Yes Eye Exam: Normal Eyes: Positive: Conjunctiva Clear ENT: Positive: Pharynx normal, TMs normal Neck exam: Normal Neck: Positive: Supple Respiratory: Positive: Lungs clear, Normal breath sounds, No respiratory distress Cardiovascular: Positive: RRR Abdomen Description: Positive: Nontender, Soft Musculoskeletal Exam: Normal Musculoskeletal: Positive: Strength Intact, ROM Intact Neurological Exam: Normal Neurological: Positive: Alert, Muscle Tone Normal Psychological Exam: Normal Skin Exam: Normal Complaint Male Course/Dx - Course Course Of Treatment: The urinalysis was normal. By history the patient the last time he urinated did not exhibit any pain symptoms. With a normal urine normal urination behavior I will not start an antibiotic at this time. Urine culture ordered. Plan is to go back to the [facility] and observing reevaluated if anything gets worse or any other questions or concerns. - Differential Dx/Diagnosis Provider Diagnosis: Normal urinalysis Discharge - Sign-Out/Discharge Documenting (check all that apply): Patient Departure All imaging exams completed and their final reports reviewed: No Studies - Discharge Plan Condition: Stable Disposition: HOME Patient Education Materials: Dysuria (ED) Referrals: Austin Gonzalez DO [Primary Care Provider] - Additional Instructions: FOLLOW UP WITH YOUR DOCTOR IF NOT COMPLETELY IMPROVED. GET RECHECKED FOR ANY WORSENING OF YOUR CONDITION OR QUESTIONS OR CONCERNS. - Billing Disposition and Condition Condition: STABLE Disposition: Home
== END 2018-04-23 17:40 | disposition home or self-care (01) ==
LOC: UCCORT 16:12
DX: R30.0 Dysuria (principal); F79 Unspecified intellectual disabilities; Z88.8 Allergy status to other drugs, medicaments and biological substances
CPT/HCPCS: 81003; 87086; 99211; G0463

== ENCOUNTER 2018-11-26 08:58 | Emergency (ER) | payer MEDICARE, MEDICAID ==
[2018-11-26 09:33] VITALS: BP 144/81
--- NOTE | 2018-11-26 09:57 | UC ---
Lower Extremity/Ankle HPI - HPI Summary HPI Summary: 58 yo long-term resident without hx of injury, noted to be limping yesterday. Works at [employer]. One resident is wheelchair bound and postulated that he could have run over Cirilo's foot. - History of Current Complaint Chief Complaint: UCLowerExtremity Stated Complaint: LEFT FOOT COMPLAINT Time Seen by Provider: 11/26/18 09:50 Hx Obtained From: Patient Onset/Duration: Sudden Onset, Lasting Days - 2 Severity Initially: Mild Severity Currently: Mild Pain Intensity: 0 Aggravating Factor(s): Standing, Ambulation Alleviating Factor(s): Rest Able to Bear Weight: Yes - Risk Factors Gout Risk Factors: Negative DVT Risk Factors: Negative Septic Arthritis Risk Factor: Negative - Allergies/Home Medications Allergies/Adverse Reactions: Allergies Allergy/AdvReac Type Severity Reaction Status Date / Time Rentin A Allergy Unknown Uncoded 11/26/18 09:19 Reaction Details Home Medications: Home Medications Multivitamin/Iron/Folic Acid [Centrum Adults Tablet] 1 each PO DAILY 11/26/18 [ History Confirmed 11/26/18] Wheat Dextrin [Benefiber] 1 each PO BID 11/26/18 [History Confirmed 11/26/18] PMH/Surg Hx/FS Hx/Imm Hx Previously Healthy: No Cardiovascular History: Other - hx of syncopy, uncertain cause. Neurological History: Seizures Psychological History: Anxiety - Surgical History Surgical History: Yes Surgery Procedure, Year, and Place: LAPAROTOMY FOR FOREIGN BODY REMOVAL. SURGICAL TOOTH REMOVAL - Family History Known Family History: Positive: Unknown - not verbal with me - Social History Occupation: Employed Part-time Lives: Detention Alcohol Use: None Substance Use Type: None Smoking Status (MU): Never Smoked Tobacco - Immunization History Vaccination Up to Date: Yes Review of Systems All Other Systems Reviewed And Are Negative: Yes Constitutional: Positive: Negative Skin: Positive: Negative Eyes: Positive: Negative Cardiovascular: Positive: Other - caregiver reports syncopal episodes, but none recently. Genitourinary: Positive: Negative Neurological: Positive: Other - no recent seizures. Psychological: Positive: Anxious Is Patient Immunocompromised?: No Physical Exam Triage Information Reviewed: Yes Appearance: Well-Appearing, No Pain Distress, Thin Vital Signs: Initial Vital Signs Temp 99.7 F 11/26/18 09:22 Pulse 95 11/26/18 09:22 Resp 20 11/26/18 09:22 BP 144/81 11/26/18 09:22 Pulse Ox 98 11/26/18 09:22 ENT: Positive: Normal ENT inspection - Large cyst left lower neck. Respiratory Exam: Normal Cardiovascular Exam: Normal Musculoskeletal Exam: Other - gait normal Musculoskeletal: Positive: Strength Intact, ROM Intact - at left ankle and mid foot. Psychological Exam: Other - dislikes being examined and pushes examiner away frequently. Skin Exam: Other - erythema, ecchymosis distal left foot over approximatemly 8 cm, including digits 4 and 5. Mild swelling. Diagnostics - Laboratory Lab Results: Dr. Muhammad: possible non-displaced fracture base of the fifth proximal phalanx left foot. Lower Extremity Course/Dx - Course Course Of Treatment: This injury should heal well. Use ibuprofen as needed for relief of pain, continue use of protective foot wear. - Differential Dx/Diagnosis Differential Diagnosis/HQI/PQRI: Cellulitis, Contusion, Fracture (Closed), Sprain, Strain Provider Diagnosis: Contusion of left ankle or foot, Fracture of fifth toe, left, closed Discharge ED - Sign-Out/Discharge Documenting (check all that apply): Patient Departure All imaging exams completed and their final reports reviewed: Yes - Discharge Plan Condition: Stable Disposition: HOME Patient Education Materials: Foot Contusion (ED), Toe Fracture (ED) Referrals: Sheri Licona MD [Primary Care Provider] - Additional Instructions: Continue use of supportive foot wear and use ibuprofen as needed for pain control. - Billing Disposition and Condition Condition: STABLE Disposition: Home
== END 2018-11-26 10:29 | disposition home or self-care (01) ==
LOC: UCCORT 08:58
DX: S92.515A Nondisplaced fracture of proximal phalanx of left lesser toe(s), initial encounter for closed fracture (principal); Z88.8 Allergy status to other drugs, medicaments and biological substances; X58.XXXA Exposure to other specified factors, initial encounter; Y93.02 Activity, running; Y92.199 Unspecified place in other specified residential institution as the place of occurrence of the external cause
CPT/HCPCS: 99211; G0463